=== PATIENT | female | born 1960 | race Caucasian/White ===

== ENCOUNTER → 2018-02-15 14:04 | Outpatient (CLI) | payer MEDICARE, OTHER, SELFPAY ==
--- NOTE | 2018-02-15 | DI.MRI.S_ITS ---
PROCEDURE: MR KNEE RT WO CON INDICATIONS: STRESS FRACTURE - RIGHT TECHNIQUE: Noncontrast sagittal PD fast spin echo and T2 fast spin echo with fat saturation, sagittal 3-D FLASH with fat saturation; coronal T1 spin echo and PD fast spin echo with fat saturation, and axial PD fast spin echo with fat saturation through the knee. COMPARISON: [facility], MR, KNEE WITHOUT CONTRAST, 11/30/2017, 16:49. FINDINGS: Image quality: Excellent. Menisci: The medial meniscus is intact. There is a discoid lateral meniscus without evidence of tear. Cruciate ligaments: The anterior and posterior cruciate ligaments appear intact. Medial structures: The medial collateral ligament appears intact. The posterior oblique ligament, semimembranosus tendon insertions, oblique popliteal ligament, and meniscocapsular junction appear intact. Visualized portions of the pes anserinus tendons appear normal. No abnormal bursal fluid. Lateral structures: The lateral collateral ligament, long and short heads of the biceps femoris tendon appear intact. The popliteus tendon appears normal; the popliteofibular ligament appears intact. The posterosuperior and anteroinferior popliteomeniscal fascicles appear intact. The arcuate and fabellofibular ligaments appear intact, on either side of the lateral inferior geniculate artery. Iliotibial band appears normal. Anterior structures: The quadriceps and patellar tendons appear intact. Patellar alignment is normal. No femoral trochlear dysplasia or ventral trochlear prominence. No edema in the infrapatellar fat pad. Bones and cartilage: No displaced fracture. Previously seen contusion within the distal central and lateral femoral condyle has decreased moderately, consistent with resolving contusion. Mild diffuse articular cartilage loss is present in all 3 compartments. Joint space: There is physiologic knee joint fluid. No change in 7 mm diameter intra-articular loose body within the anterior compartment. Trace Ramos's cyst. Normal appearing synovial plicae are incidentally noted. IMPRESSION: 1 tear resolving contusion within the distal femur. 2. No change in mild tricompartmental articular cartilage loss. 3. Discoid lateral meniscus without superimposed tear. 4. No change in intra-articular loose body. Dictated by: Fay Grady M.D. on 02/15/2018 at 16:23 Approved by: Fay Grady M.D. on 02/15/2018 at 16:28
--- NOTE | 2018-02-15 | DI.MRI.S_ITS ---
PROCEDURE: MR FOOT RT WO CON INDICATIONS: STRESS FRACTURE - RIGHT TECHNIQUE: Noncontrast sagittal T1 spin echo and T2 fast spin echo with fat saturation, long-axis T1 spin echo and T2 fast spin echo with fat saturation, short-axis T1 spin echo and T2 fast spin echo with fat saturation through the forefoot. COMPARISON: [facility], MR, MR FOOT LT WO CON, 02/15/2018, 14:47. [facility], MR, FOOT WITHOUT CONTRAST, 11/30/2017, 17:47. [facility], MR, FOOT WITHOUT CONTRAST, 11/30/2017, 17:22. [facility], MR, MR FOOT RIGHT WITHOUT CONTRAST, 07/05/2017, 15:05. FINDINGS: Image quality: Diagnostic. Bones and joints: Moderate diffuse marrow edema is identified involving the medial cuneiform. There is mild marrow edema involving the adjacent plantar base of the 1st metatarsal. There is mild marrow edema noted involving the proximal navicular. No additional areas of significant marrow edema are evident. There are no suspicious osseous lesions. No displaced fractures or dislocations are identified. There are mild degenerative changes present involving the metatarsophalangeal joints, most pronounced at the great toe. There is a bony protuberance evident involving the medial cuneiform that extends into the region of the Lisfranc interval, which may potentially be related to prior Lisfranc ligament injury. Soft tissues: The soft tissues of the right forefoot are within normal limits. There is no mass or loculated fluid collection. There is a dorsal subcutaneous edema are present. No ganglion cysts or bursal fluid collections are appreciated. The flexor and extensor tendons of the foot are essentially within normal limits. However, there may be mild tendinopathy involving the mid to distal aspect of the peroneus longus tendon. There is no significant atrophy involving the intrinsic muscles of the forefoot. The Lisfranc ligament is not well seen. IMPRESSION: 1. Unchanged marrow edema involving the medial cuneiform. This may represent a stress fracture or degenerative change. No new fractures are evident. 2. Marrow edema is also present involving the base of the 1st metatarsal and the navicular, also likely degenerative. 3. Mild degenerative changes of the metatarsophalangeal joints. 4. Mild mid to distal peroneus longus tendinopathy. Dictated by: Gordo Colorado M.D. on 02/15/2018 at 15:11 Approved by: Gordo Colorado M.D. on 02/15/2018 at 15:18
--- NOTE | 2018-02-15 | DI.MRI.S_ITS ---
PROCEDURE: MRFOOT LT WO CON INDICATIONS: STRESS FRACTURE - LEFT TECHNIQUE: Noncontrast sagittal T1 spin echo and T2 fast spin echo with fat saturation, long-axis T1 spin echo and T2 fast spin echo with fat saturation, short-axis T1 spin echo and T2 fast spin echo with fat saturation through the forefoot. COMPARISON: [facility], MR, FOOT WITHOUT CONTRAST, 11/30/2017, 17:47. [facility], MR, FOOT WITHOUT CONTRAST, 11/30/2017, 17:22. [facility], CR, XR FOOT 3+ VIEWS BILATERAL, 09/09/2017, 16:13. [facility], MR, MR FOOT LEFT WITHOUT CONTRAST, 07/05/2017, 14:29. FINDINGS: Image quality: Diagnostic. Bones and joints: There continues to be diffuse marrow edema present involving the medial cuneiform with an associated linear area of decreased T1 signal intensity, suggesting a stress fracture. This appearance is similar to the previous exams and has not significantly progressed. There is marrow edema noted involving the 5th metacarpal with linear areas decreased T1 signal at the neck of the 5th metacarpal. There is mild narrowing edema also present involving the head of the 4th metacarpal. Marrow edema is present involving the proximal phalanx of the 3rd digit. No suspicious osseous lesions or displaced fractures are evident. Bony alignment is within normal limits. Soft tissues: There is no soft tissue mass or fluid collection evident involving the left foot. No ganglion cysts are evident. The flexor and extensor tendons of the forefoot are intact. There is tendinopathy noted involving the peroneus longus. No significant muscle atrophy is evident involving the intrinsic muscles of the forefoot. Lisfranc ligament appears to be intact. There is a subcutaneous edema on the dorsal aspect of the forefoot is present. IMPRESSION: 1. Unchanged stress fractures versus degenerative marrow edema involving the medial cuneiform, 5th metatarsal, 4th metatarsal head, and proximal phalanx of the 3rd digit. No new bony abnormalities are identified. 2. Mild peroneus longus tendinopathy. Dictated by: Gordo Colorado M.D. on 02/15/2018 at 15:24 Approved by: Gordo Colorado M.D. on 02/15/2018 at 15:29
== END ==
PROVIDERS: PCP Orthopaedic Surgery Foot and Ankle Surgery; Visit Provider Orthopaedic Surgery Foot and Ankle Surgery
DX: M84.374A Stress fracture, right foot, initial encounter for fracture (principal); S83.91XA Sprain of unspecified site of right knee, initial encounter
CPT/HCPCS: 73718; 73721

== ENCOUNTER 2018-03-22 02:43 | Emergency (ER) | payer MEDICARE, OTHER, SELFPAY ==
[2018-03-22] VITALS (7 sets, daily range): BP systolic 93–151; BP diastolic 68–99; PULSE 71–96; RESP 12–18; TEMP 35.9; O2SAT 96–100
--- NOTE | 2018-03-22 03:26 | DI.RAD.S_ITS ---
PROCEDURE: XR HIP W PEL IF DONE RT 2V INDICATIONS: pain in right hip TECHNIQUE: AP pelvis with lateral view(s) of the right hip(s). COMPARISON: None. FINDINGS: Bones: Osteopenia. No fractures or dislocations. Pelvic ring appears intact. Marked pelvic tilt downward on the left may be positional. No suspicious bony lesions. Soft tissues: The visualized bowel gas pattern shows considerable stool within the colon. No suspicious soft tissue calcifications. IMPRESSION: 1. No fracture or dislocation. 2. Possible constipation Dictated by: Carlos Rojas M.D. on 03/22/2018 at 8:05 Approved by: Carlos Rojas M.D. on 03/22/2018 at 8:12
--- NOTE | 2018-03-22 03:26 | DI.RAD.S_ITS ---
PROCEDURE: XR KNEE RT 3V INDICATIONS: pain TECHNIQUE: 3 views of the knee were acquired. COMPARISON: [facility], MR, MR KNEE RT WO CON, 02/15/2018, 15:40. [facility], RG, KNEE 3VW (RT), 08/25/2017, 5:23. [facility], RG, KNEE 3VW (RT), 03/30/2017, 16:07. FINDINGS: Bones: Generalized osteopenia. No fractures or dislocations. No suspicious bony lesions. Mild tricompartmental joint space narrowing Soft tissues: No joint effusion. No suspicious soft tissue calcifications. IMPRESSION: 1. No joint effusion or acute bony abnormality. Dictated by: Carlos Rojas M.D. on 03/22/2018 at 8:00 Approved by: Carlos Rojas M.D. on 03/22/2018 at 8:05
[2018-03-22] MEDS: LORazepam 2 MG/ML SYRINGE 0.5 MG IV (04:22)
[2018-03-22] MEDS: HALOPERIDOL 5 MG/ML VIAL 1.5 MG IV (04:24)
[2018-03-22] MEDS: MORPHINE 5 MG/ML INJ 4 MG IV (04:26)
--- NOTE | 2018-03-22 04:39 | ED_ITS ---
HPI - Extremity Injury (Lower) General Chief Complaint: Extremity Injury, Lower Stated Complaint: Rt leg pain History of Present Illness HPI Narrative: HPI 57-year-old female with cerebral palsy, [place]'s disease, osteoporosis, and recurrent atraumatic insufficiency fractures presents for evaluation of right hip and knee pain after bumping her right hip in the approximately 3 days prior to presentation while transitioning from a wheelchair to a car. Patient notes mild to moderate waxing waning pain that worsen this evening leading to her presentation. No clear interval trauma. Patient as fevers, chills, or further symptoms. M/S/F/SocHx notable for: please see HPI; remainder reviewed with patient and in chart. ROS: Negative constitutional, eye, cardiovascular, pulmonary, GI, , MSK, skin , neurologic, psychiatric, endocrine unless noted in the HPI. Exam Gen: Pleasant, non-toxic appearing, resting in mild discomfort. HEENT: NC, AT, PEERL, EOMI. Resp: Clear to auscultation bilaterally, normal work of breathing, no accessory muscle usage. Card: Regular rate and rhythm with no murmurs, rubs, or gallops, extremities warm and well perfused. GI: Non-tender to palpation throughout all quadrants, no focal tenderness at McBurney's point, negative Lennon's sign, non-distended, no rebound or guarding. : No suprapubic tenderness to palpation. MSK: global muscle atrophy. No tenderness palpation of the appendicular skeleton with exception of the right lower extremity with mild right hip tenderness and mild right knee tenderness but without palpable abnormalities. All extremities warm and well perfused with 2+ radial pulses in DP pulses bilaterally. Right lower extremity with full functional range of motion of the hip, knee, ankle. Sensation intact to touch in all toes. Muscle compartments of the right lower extremity (as well as the remainder of the appendicular skeleton ) are soft and nontender to palpation. Skin is without visible or palpable abnormalities. Skin: Normal color with no visible lesions. Neuro: AO x 3, no facial asymmetry, vision and hearing WNL. Psych: unusual mood and affect. Labs / Imaging: XR R hip & pelvis: no acute traumatic abnormalities. XR R knee: no acute traumatic abnormalities. MDM Previous chart, nursing note, labs, imaging, and vitals reviewed. A: 57-year-old female with cerebral palsy, [place]'s disease, osteoporosis, and recurrent atraumatic insufficiency fractures presents for evaluation of right hip and knee pain after bumping her right hip in the approximately 3 days prior to presentation while transitioning from a wheelchair to a car. Patient notes mild to moderate waxing waning pain that worsen this evening leading to her presentation. DDx & Evaluation: imaging without evidence of radiographically apparent fracture. Insufficiency fracture cannot be fully excluded, but as the patient has only been appropriate for conservative management previously, and there are no clear signs of fracture, she is appropriate for analgesia and outpatient care as needed. Physical exam is without evidence of CMS deficit, compartment syndrome, or infectious process. Patient given analgesia as per DEC. Discharged with limited RX for [place] instructions to follow up with PCP. Impression: right leg pain. (please reference below for remainder of encounter information) Related Data Home Medications Medication Instructions Recorded Confirmed acyclovir #0 08/25/17 divalproex [Depakote ER] #0 08/25/17 esterified estrogens [Menest] #0 08/25/17 fludrocortisone #0 08/25/17 hydrocortisone [Cortef] #0 08/25/17 liothyronine [Cytomel] #0 08/25/17 lorazepam #0 08/25/17 oxycodone [OxyContin] #0 08/25/17 Allergies Allergy/AdvReac Type Severity Reaction Status Date / Time hydromorphone [From DILAUDID] Allergy Unknown Unverified 01/11/18 11:47 lamotrigine [From LAMICTAL] Allergy Unknown Unverified 01/11/18 11:47 levetiracetam [From KEPPRA] Allergy Unknown Unverified 01/11/18 11:47 promethazine [From PHENERGAN] Allergy Unknown Unverified 01/11/18 11:47 Exam Initial Vital Signs Initial Vital Signs: Vital Signs Temperature 96.7 F L 03/22/18 03:15 Pulse Rate 73 03/22/18 03:15 Respiratory Rate 12 03/22/18 03:15 Blood Pressure 115/90 H 03/22/18 03:15 Pulse Oximetry 99 03/22/18 03:15 Course Orders Ordered: ED Orders 03/22/18 03:26 XR hip w pel if done RT 2V Stat XR knee RT 3V Stat Discontinued Medications Haloperidol (Haldol) 1.5 mg IV NOW ONE Stop: 03/22/18 04:13 Last Admin: 03/22/18 04:24 Dose: 1.5 mg Lorazepam (Ativan) 0.5 mg IV NOW ONE Stop: 03/22/18 04:13 Last Admin: 03/22/18 04:22 Dose: 0.5 mg Morphine Sulfate (Morphine Sulfate) 4 mg IV NOW ONE Stop: 03/22/18 04:13 Last Admin: 03/22/18 04:26 Dose: 4 mg Vital Signs - 8 hr 03/22/18 03:15 Temperature 96.7 F L Pulse Rate 73 Respiratory Rate 12 Blood Pressure 115/90 H Pulse Oximetry 99 Discharge Plan Departure Prescriptions: No Action liothyronine [Cytomel] 5 MCG tablet Qty: 0 RF: 0 divalproex [Depakote ER] 250 MG tablet extended release 24 hr Qty: 0 RF: 0 hydrocortisone [Cortef] 20 MG tablet Qty: 0 RF: 0 lorazepam 1 MG tablet Qty: 0 RF: 0 fludrocortisone 0.1 MG tablet Qty: 0 RF: 0 acyclovir 400 MG tablet Qty: 0 RF: 0 oxycodone [OxyContin] 40 MG tablet,oral only,ext.rel.12 hr Qty: 0 RF: 0 esterified estrogens [Menest] 1.25 MG tablet Qty: 0 RF: 0
[2018-03-22] MEDS: FLUDROCORTISONE 0.1 MG TABLET 0.05 MG PO (08:39)
[2018-03-22] MEDS: KETOROLAC 60 MG/2 ML VIAL 15 MG IV (08:40)
[2018-03-22] MEDS: HYDROCORTISONE 10 MG TABLET 20 MG PO (08:40)
--- NOTE | 2018-03-22 09:06 | PC.NURSE ---
PT states cannot go home as cannot take care of herself. States we are sending her home without proper care. MD at bedside to discuss with PT. Transport standing by
[2018-03-22] MEDS: MORPHINE 10 MG/ML INJ 4 MG IM (09:14)
--- NOTE | 2018-03-22 09:23 | PC.NURSE ---
Per . Pain meds and DC
== END 2018-03-22 09:25 | disposition home or self-care (01) ==
PROVIDERS: Emergency Provider Emergency Medicine; PCP Orthopaedic Surgery Foot and Ankle Surgery
DX: M79.604 Pain in right leg (principal)
CPT/HCPCS: 73502; 73562; 99283; 99291; J1630; J1885; J2060; J2270

== ENCOUNTER 2018-03-22 18:36 | Emergency (ER) | payer MEDICARE, OTHER, SELFPAY ==
--- NOTE | 2018-03-22 19:11 | ED.WEAKNESS ---
HPI - Weakness <Maryann AlexanderDOMINGOP-BC - Last Filed: 03/22/18 23:00> General Chief complaint: Weakness Stated complaint: Leg Pain Time Seen by Provider: 03/22/18 18:57 Source: patient Mode of arrival: EMS Limitations: no limitations History of Present Illness HPI Narrative: Patient presented by EMS from home. She was seen earlier today for joint pain. She stated she was offered admission at that time, but she wanted to go home. She states she has failed home. She is complaining of pain that is worsening, decreased mobility, and inability to care for self. She is noted to have a medical history including seizures, cerebral palsy, severe osteoporosis and [place] disease. She states that her pain is mostly in her knees and her feet. She states that she has microscopic fractures that she is unable to have found by x-ray. She is requesting admission for inability to care for self and was to fall. At this point she denies fevers, urinary complaints, chest pain, shortness of breath, cough. She states she is in a wheelchair at home, is unable to walk to to foot fractures, and has a caregiver come 3 days a week. However she is now too weak to transfer from her wheelchair to her bed. Related Data Home Medications Medication Instructions Recorded Confirmed acyclovir #0 08/25/17 divalproex [Depakote ER] #0 08/25/17 esterified estrogens [Menest] #0 08/25/17 fludrocortisone #0 08/25/17 hydrocortisone [Cortef] #0 08/25/17 liothyronine [Cytomel] #0 08/25/17 lorazepam #0 08/25/17 oxycodone [OxyContin] #0 08/25/17 Previous Rx's Medication Instructions Recorded hydrocodone-acetaminophen [[place]] 1 tab PO Q6H PRN #6 tab 03/22/18 oxycodone-acetaminophen [Percocet] 1 tab PO Q4-6H PRN #7 tab 03/22/18 Allergies Allergy/AdvReac Type Severity Reaction Status Date / Time hydromorphone [From DILAUDID] Allergy Unknown Verified 03/22/18 22:43 lamotrigine [From LAMICTAL] Allergy Unknown Verified 03/22/18 22:43 levetiracetam [From KEPPRA] Allergy Unknown Verified 03/22/18 22:43 promethazine [From PHENERGAN] Allergy Unknown Verified 03/22/18 22:43 Review of Systems <Maryann GEORGETTE Alexander- - Last Filed: 03/22/18 23:00> Review of Systems GENERAL: See HPI HEENT: Denies sinus pain, ear pain, sore throat, difficulty swallowing, dizziness. RESPIRATORY: Denies dyspnea, cough, wheezing, hemoptysis, sputum. CARDIOVASCULAR: Denies chest pain, palpitations, orthopnea, edema, GASTROINTESTINAL: Denies nausea, vomiting, abdominal pain, diarrhea, constipation, melena. : Denies dysuria, frequency, incontinence, hematuria, urinary retention. MUSCULOSKELETAL: See HPI SKIN: Denies rash, skin lesions, or other NEUROLOGIC: Denies weakness, headache, numbness, change in speech, confusion, seizures, incoordination. PSYCHIATRIC: No concerning psychosocial issues. 12 point review of systems is negative except for those stated above Exam <GEORGETTE Keane- - Last Filed: 03/22/18 23:00> Narrative Exam Narrative: GENERAL: Chronically ill-appearing female lying in bed. HEAD: Atraumatic. Normocephalic. No temporal or scalp tenderness. EYES: Pupils equal round and reactive. Extraocular motions intact. No scleral icterus. No injection or drainage. ENT: Nose without bleeding, purulent drainage or septal hematoma. Throat without erythema, tonsillar hypertrophy or exudate. Uvula midline. Airway patent. NECK: Trachea midline. No JVD or lymphadenopathy. Supple, nontender, no meningeal signs. CARDIOVASCULAR: Regular rate and rhythm without murmurs, gallops, or rubs. RESPIRATORY: Clear to auscultation. Breath sounds equal bilaterally. No wheezes, rales, or rhonchi. GASTROINTESTINAL: Abdomen soft, flat, non-tender, nondistended. No hepato-splenomegaly, or palpable masses. No guarding. EXTREMITIES: Noted to have brace on bilateral lower extremities, including right knee and left foot. Pain to palpation of lower extremities and hips. BACK: Nontender without deformity or crepitance. No flank tenderness. NEURO: AOx3. SKIN: No rash or erythema. Initial Vital Signs Initial Vital Signs: Vital Signs Pulse Rate 102 H 03/22/18 20:06 Respiratory Rate 18 03/22/18 20:06 Blood Pressure 103/67 03/22/18 20:06 Pulse Oximetry 100 03/22/18 20:06 <Rika Payan DO - Last Filed: 03/23/18 00:47> Initial Vital Signs Initial Vital Signs: Vital Signs Pulse Rate 102 H 03/22/18 20:06 Respiratory Rate 18 03/22/18 20:06 Blood Pressure 103/67 03/22/18 20:06 Pulse Oximetry 100 03/22/18 20:06 Course <Maryann AlexanderGEORGETTE-BC - Last Filed: 03/22/18 23:00> Hospital Course: Patient presented for 2nd emergency department visit the past 18 hr. She is requesting admission as she cannot care for herself at home. An IV was inserted, basic labs were drawn, an EKG was done in urine samples obtained. Lab work came back normal. However the patient is significantly weak, is at risk of fall, is having pain control problems and is no longer safe to be at home by herself. I contacted Dr. Marcano to request admission for pain control and discharge planning. However Dr. Shawnee Marcano did not think that the patient met admission criteria. Given her weakness and risk to fall, I did not feel safe to transfer her home as she is unable to transfer herself from her wheelchair to her bed. She was medicated with oxycodone in the emergency department. I contacted Dr. Marcano at [facility] who kindly agree to admit the patient. Orders Ordered: ED Orders 03/22/18 19:24 EKG-12 Lead Stat 03/22/18 20:30 Complete Blood Count AUTO DIFF Stat Comprehensive Metabolic Panel Stat Troponin with CK Cardiac Panel Stat Discontinued Medications Sodium Chloride (Normal Saline 0.9%) 1,000 mls @ 150 mls/hr IV CONT SORAIDA Last Admin: 03/22/18 21:04 Dose: 150 mls/hr Oxycodone HCl ([place]) 5 mg PO NOW ONE Stop: 03/22/18 21:51 Last Admin: 03/22/18 22:42 Dose: 5 mg Vital Signs - 8 hr 03/22/18 20:06 03/22/18 21:05 03/22/18 21:45 Pulse Rate 102 H 88 93 H Respiratory Rate 18 19 Blood Pressure [Right Arm] 103/67 120/80 136/85 H Pulse Oximetry 100 100 98 03/22/18 22:30 Pulse Rate 94 H Respiratory Rate 15 Blood Pressure [Right Arm] 108/80 Pulse Oximetry 98 <Rika Payan DO - Last Filed: 03/23/18 00:47> Orders Ordered: ED Orders 03/22/18 19:24 EKG-12 Lead Stat 03/22/18 20:30 Complete Blood Count AUTO DIFF Stat Comprehensive Metabolic Panel Stat Troponin with CK Cardiac Panel Stat Discontinued Medications Sodium Chloride (Normal Saline 0.9%) 1,000 mls @ 150 mls/hr IV CONT SORAIDA Last Admin: 03/22/18 21:04 Dose: 150 mls/hr Oxycodone HCl (Per[place]one) 5 mg PO NOW ONE Stop: 03/22/18 21:51 Last Admin: 03/22/18 22:42 Dose: 5 mg Vital Signs - 8 hr 03/22/18 20:06 03/22/18 21:05 03/22/18 21:45 Pulse Rate 102 H 88 93 H Respiratory Rate 18 18 19 Blood Pressure [Right Arm] 103/67 120/80 136/85 H Pulse Oximetry 100 100 98 03/22/18 22:30 Pulse Rate 94 H Respiratory Rate 15 Blood Pressure [Right Arm] 108/80 Pulse Oximetry 98 MDM - Weakness <MAGDIEL Keane - Last Filed: 03/22/18 23:00> Lab Data Result diagrams: 03/22/18 20:30 03/22/18 20:30 Lab Results 03/22/18 03/22/18 Range/Units 20:30 20:30 WBC 6.4 (4.5-11.0) X10^3/uL RBC 4.27 (4.0-5.2) X10^6/uL Hgb 13.9 (12.0-16.0) g/dL Hct 40.9 (36-46) % MCV 95.8 (80-100) fL MCH 32.6 (26-34) PG MCHC 34.1 (30-36) % RDW 13.7 (11.6-14.8) % Plt Count 125 L (150-400) X10^3/uL Neut % (Auto) 71.5 (50-75) % Lymph % (Auto) 15.5 L (25-40) % [place] % (Auto) 12.4 (3-14) % Eos % (Auto) 0.1 L (2-4) % Baso % (Auto) 0.5 (0-2) % Neut # (Auto) 4600 (4144-0978) /uL Sodium 141 (137-145) mmol/L Potassium 3.8 (3.4-5.1) mmol/L Chloride 99 (98-107) mmol/L Carbon Dioxide 30 (22-32) mmol/L BUN 14 (7-17) mg/dL Creatinine 0.40 L (0.52-1.04) mg/dL Estimated GFR > 60.0 (>60) mL/min BUN/Creatinine Ratio 35.0 H (6-22) Glucose 87 (70-100) mg/dL Calcium 9.1 (8.4-10.2) mg/dL Total Bilirubin 0.9 (0.2-1.3) mg/dL AST 23 (14-36) IU/L ALT 14 (9-52) IU/L Alkaline Phosphatase 68 (38-126) U/L Total Creatine Kinase 88 (30-135) U/L Troponin I < 0.012 (0.01-0.034) ng/mL Total Protein 7.3 (6.3-8.2) g/dL Albumin 4.1 (3.5-5.0) g/dL Globulin 3.2 (1.7-4.1) g/dL Albumin/Globulin Ratio 1.3 (1.0-2.8) ECG Data Attestation: I personally reviewed and interpreted this ECG as follows: Interpretation: Sinus rhythm. No ectopy. Ventricular rate 87. No ST elevation or depression. [facility] Narrative Medical decision making narrative: Patient presented requesting admission for pain control and inability to care for self. Chart review illustrated stress fractures in her feet. I did a CBC, CMP, troponin and EKG all which came back negative. Her urinalysis came back negative. However given her severe pain, weakness, decreased mobility and risk to fall and not feel safe to discharge her home without further care. [facility] hospitalist Dr. Marcano did not feel that the patient met admission criteria. Dr. Mistry kindly admitted the patient to [facility] and the patient was transferred without incident. <Rika Payan, DO - Last Filed: 03/23/18 00:47> Lab Data Lab Results 03/22/18 03/22/18 Range/Units 20:30 20:30 WBC 6.4 (4.5-11.0) X10^3/uL RBC 4.27 (4.0-5.2) X10^6/uL Hgb 13.9 (12.0-16.0) g/dL Hct 40.9 (36-46) % MCV 95.8 (80-100) fL MCH 32.6 (26-34) PG MCHC 34.1 (30-36) % RDW 13.7 (11.6-14.8) % Plt Count 125 L (150-400) X10^3/uL Neut % (Auto) 71.5 (50-75) % Lymph % (Auto) 15.5 L (25-40) % [place] % (Auto) 12.4 (3-14) % Eos % (Auto) 0.1 L (2-4) % Baso % (Auto) 0.5 (0-2) % Neut # (Auto) 4600 (7716-2876) /uL Sodium 141 (137-145) mmol/L Potassium 3.8 (3.4-5.1) mmol/L Chloride 99 (98-107) mmol/L Carbon Dioxide 30 (22-32) mmol/L BUN 14 (7-17) mg/dL Creatinine 0.40 L (0.52-1.04) mg/dL Estimated GFR > 60.0 (>60) mL/min BUN/Creatinine Ratio 35.0 H (6-22) Glucose 87 (70-100) mg/dL Calcium 9.1 (8.4-10.2) mg/dL Total Bilirubin 0.9 (0.2-1.3) mg/dL AST 23 (14-36) IU/L ALT 14 (9-52) IU/L Alkaline Phosphatase 68 (38-126) U/L Total Creatine Kinase 88 (30-135) U/L Troponin I < 0.012 (0.01-0.034) ng/mL Total Protein 7.3 (6.3-8.2) g/dL Albumin 4.1 (3.5-5.0) g/dL Globulin 3.2 (1.7-4.1) g/dL Albumin/Globulin Ratio 1.3 (1.0-2.8) Discharge Plan Departure Patient Disposition: [facility] Clinical Impression: Weakness, Adult failure to thrive, Pain Discharge Date/Time: 03/22/18 23:33 Interventions: ED Discharge Assessment Last Done: 03/22/18 23:30 Prescriptions: No Action liothyronine [Cytomel] 5 MCG tablet Qty: 0 RF: 0 divalproex [Depakote ER] 250 MG tablet extended release 24 hr Qty: 0 RF: 0 hydrocortisone [Cortef] 20 MG tablet Qty: 0 RF: 0 lorazepam 1 MG tablet Qty: 0 RF: 0 fludrocortisone 0.1 MG tablet Qty: 0 RF: 0 acyclovir 400 MG tablet Qty: 0 RF: 0 oxycodone [OxyContin] 40 MG tablet,oral only,ext.rel.12 hr Qty: 0 RF: 0 esterified estrogens [Menest] 1.25 MG tablet Qty: 0 RF: 0 hydrocodone-acetaminophen [[place]] 5-325 mg tablet 1 tab PO Q6H PRN (Reason: pain) Qty: 6 RF: 0 oxycodone-acetaminophen [Percocet] 5-325 mg tablet 1 tab PO Q4-6H PRN (Reason: pain) Qty: 7 RF: 0 <Rika Payan DO - Last Filed: 03/23/18 00:47> [facility] ED Attending [place] Attestation: I was immediately available in the department for consultation. Documentation has been reviewed. I agree with assessment and plan.
[2018-03-22 20:06] VITALS: BP 103/67; PULSE 102; RESP 18; O2SAT 100
[2018-03-22 20:38] LABS: Add Manual Diff / Slide Review NO; Basophils Percent Auto 0.5 % (0-2); Eosinophils Percent Auto 0.1 % (2-4); Hematocrit 40.9 % (36-46); Hemoglobin 13.9 g/dL (12.0-16.0); Lymphocytes Percent Auto 15.5 % (25-40); Mean Corpuscular HGB Conc 34.1 % (30-36); Mean Corpuscular Hemoglobin 32.6 PG (26-34); Mean Corpuscular Volume 95.8 fL (80-100); Monocytes Percent Auto 12.4 % (3-14); Neutrophils Absolute Auto 4600 /uL (3000-5900); Neutrophils Percent Auto 71.5 % (50-75); Platelet Count 125 X10^3/uL (150-400); Red Blood Cell Count 4.27 X10^6/uL (4.0-5.2); Red Cell Distribution Width 13.7 % (11.6-14.8); White Blood Cell Count 6.4 X10^3/uL (4.5-11.0)
[2018-03-22 20:49] LABS: Alanine Aminotransferase 14 IU/L (9-52); Albumin 4.1 g/dL (3.5-5.0); Albumin Globulin Ratio 1.3 (1.0-2.8); Alkaline Phosphatase 68 U/L (38-126); Aspartate Aminotransferase 23 IU/L (14-36); Bilirubin Total 0.9 mg/dL (0.2-1.3); Blood Urea Nitrogen 14 mg/dL (7-17); Calcium 9.1 mg/dL (8.4-10.2); Carbon Dioxide 30 mmol/L (22-32); Chloride 99 mmol/L (98-107); Creatine Kinase 88 U/L (30-135); Estimated Glomerular Filt Rate > 60.0 mL/min (>60); Globulin 3.2 g/dL (1.7-4.1); Glucose 87 mg/dL (70-100); Potassium 3.8 mmol/L (3.4-5.1); Sodium 141 mmol/L (137-145); Total Protein 7.3 g/dL (6.3-8.2)
[2018-03-22 20:50] LABS: HEMOLYSIS 56 (0-50)
[2018-03-22 21:02] LABS: Troponin I < 0.012 ng/mL (0.01-0.034)
[2018-03-22] MEDS: SODIUM CHLORIDE 0.9% 1,000 ML 150 ML IV (21:04)
[2018-03-22 21:05] VITALS: BP 120/80; PULSE 88; RESP 18; O2SAT 100
[2018-03-22 21:45] VITALS: BP 136/85; PULSE 93; RESP 19; O2SAT 98
[2018-03-22 22:30] VITALS: BP 108/80; PULSE 94; RESP 15; O2SAT 98
[2018-03-22] MEDS: OXYCODONE IR 5 MG TABLET PO (22:42)
--- NOTE | 2018-03-22 23:00 | ED_ITS ---
HPI - Weakness <Maryann AlexanderDOMINGOP-BC - Last Filed: 03/22/18 23:00> General Chief complaint: Weakness Stated complaint: Leg Pain Time Seen by Provider: 03/22/18 18:57 Source: patient Mode of arrival: EMS Limitations: no limitations History of Present Illness HPI Narrative: Patient presented by EMS from home. She was seen earlier today for joint pain. She stated she was offered admission at that time, but she wanted to go home. She states she has failed home. She is complaining of pain that is worsening, decreased mobility, and inability to care for self. She is noted to have a medical history including seizures, cerebral palsy, severe osteoporosis and [place]'s disease. She states that her pain is mostly in her knees and her feet. She states that she has microscopic fractures that she is unable to have found by x-ray. She is requesting admission for inability to care for self and was to fall. At this point she denies fevers, urinary complaints, chest pain, shortness of breath, cough. She states she is in a wheelchair at home, is unable to walk to to foot fractures, and has a caregiver come 3 days a week. However she is now too weak to transfer from her wheelchair to her bed. Related Data Home Medications Medication Instructions Recorded Confirmed acyclovir #0 08/25/17 divalproex [Depakote ER] #0 08/25/17 esterified estrogens [Menest] #0 08/25/17 fludrocortisone #0 08/25/17 hydrocortisone [Cortef] #0 08/25/17 liothyronine [Cytomel] #0 08/25/17 lorazepam #0 08/25/17 oxycodone [OxyContin] #0 08/25/17 Previous Rx's Medication Instructions Recorded hydrocodone-acetaminophen [[place]] 1 tab PO Q6H PRN #6 tab 03/22/18 oxycodone-acetaminophen [Percocet] 1 tab PO Q4-6H PRN #7 tab 03/22/18 Allergies Allergy/AdvReac Type Severity Reaction Status Date / Time hydromorphone [From DILAUDID] Allergy Unknown Verified 03/22/18 22:43 lamotrigine [From LAMICTAL] Allergy Unknown Verified 03/22/18 22:43 levetiracetam [From KEPPRA] Allergy Unknown Verified 03/22/18 22:43 promethazine [From PHENERGAN] Allergy Unknown Verified 03/22/18 22:43 Review of Systems <Maryann GEORGETTE Alexander- - Last Filed: 03/22/18 23:00> Review of Systems GENERAL: See HPI HEENT: Denies sinus pain, ear pain, sore throat, difficulty swallowing, dizziness. RESPIRATORY: Denies dyspnea, cough, wheezing, hemoptysis, sputum. CARDIOVASCULAR: Denies chest pain, palpitations, orthopnea, edema, GASTROINTESTINAL: Denies nausea, vomiting, abdominal pain, diarrhea, constipation, melena. : Denies dysuria, frequency, incontinence, hematuria, urinary retention. MUSCULOSKELETAL: See HPI SKIN: Denies rash, skin lesions, or other NEUROLOGIC: Denies weakness, headache, numbness, change in speech, confusion, seizures, incoordination. PSYCHIATRIC: No concerning psychosocial issues. 12 point review of systems is negative except for those stated above Exam <GEORGETTE Keane- - Last Filed: 03/22/18 23:00> Narrative Exam Narrative: GENERAL: Chronically ill-appearing female lying in bed. HEAD: Atraumatic. Normocephalic. No temporal or scalp tenderness. EYES: Pupils equal round and reactive. Extraocular motions intact. No scleral icterus. No injection or drainage. ENT: Nose without bleeding, purulent drainage or septal hematoma. Throat without erythema, tonsillar hypertrophy or exudate. Uvula midline. Airway patent. NECK: Trachea midline. No JVD or lymphadenopathy. Supple, nontender, no meningeal signs. CARDIOVASCULAR: Regular rate and rhythm without murmurs, gallops, or rubs. RESPIRATORY: Clear to auscultation. Breath sounds equal bilaterally. No wheezes , rales, or rhonchi. GASTROINTESTINAL: Abdomen soft, flat, non-tender, nondistended. No hepato- splenomegaly, or palpable masses. No guarding. EXTREMITIES: Noted to have brace on bilateral lower extremities, including right knee and left foot. Pain to palpation of lower extremities and hips. BACK: Nontender without deformity or crepitance. No flank tenderness. NEURO: AOx3. SKIN: No rash or erythema. Initial Vital Signs Initial Vital Signs: Vital Signs Pulse Rate 102 H 03/22/18 20:06 Respiratory Rate 18 03/22/18 20:06 Blood Pressure 103/67 03/22/18 20:06 Pulse Oximetry 100 03/22/18 20:06 <Rika Payan DO - Last Filed: 03/23/18 00:47> Initial Vital Signs Initial Vital Signs: Vital Signs Pulse Rate 102 H 03/22/18 20:06 Respiratory Rate 18 03/22/18 20:06 Blood Pressure 103/67 03/22/18 20:06 Pulse Oximetry 100 03/22/18 20:06 Course <Maryann AlexanderGEORGETTE-BC - Last Filed: 03/22/18 23:00> Hospital Course: Patient presented for 2nd emergency department visit the past 18 hr. She is requesting admission as she cannot care for herself at home. An IV was inserted , basic labs were drawn, an EKG was done in urine samples obtained. Lab work came back normal. However the patient is significantly weak, is at risk of fall , is having pain control problems and is no longer safe to be at home by herself. I contacted Dr. Marcano to request admission for pain control and discharge planning. However Dr. Shawnee Marcano did not think that the patient met admission criteria. Given her weakness and risk to fall, I did not feel safe to transfer her home as she is unable to transfer herself from her wheelchair to her bed. She was medicated with oxycodone in the emergency department. I contacted Dr. Marcano at [facility] who kindly agree to admit the patient. Orders Ordered: ED Orders 03/22/18 19:24 EKG-12 Lead Stat 03/22/18 20:30 Complete Blood Count AUTO DIFF Stat Comprehensive Metabolic Panel Stat Troponin with CK Cardiac Panel Stat Discontinued Medications Sodium Chloride (Normal Saline 0.9%) 1,000 mls @ 150 mls/hr IV CONT SORAIDA Last Admin: 03/22/18 21:04 Dose: 150 mls/hr Oxycodone HCl (Percolone) 5 mg PO NOW ONE Stop: 03/22/18 21:51 Last Admin: 03/22/18 22:42 Dose: 5 mg Vital Signs - 8 hr 03/22/18 20:06 03/22/18 21:05 03/22/18 21:45 Pulse Rate 102 H 88 93 H Respiratory Rate 18 19 Blood Pressure [Right Arm] 103/67 120/80 136/85 H Pulse Oximetry 100 100 98 03/22/18 22:30 Pulse Rate 94 H Respiratory Rate 15 Blood Pressure [Right Arm] 108/80 Pulse Oximetry 98 <Rika Payan DO - Last Filed: 03/23/18 00:47> Orders Ordered: ED Orders 03/22/18 19:24 EKG-12 Lead Stat 03/22/18 20:30 Complete Blood Count AUTO DIFF Stat Comprehensive Metabolic Panel Stat Troponin with CK Cardiac Panel Stat Discontinued Medications Sodium Chloride (Normal Saline 0.9%) 1,000 mls @ 150 mls/hr IV CONT SORAIDA Last Admin: 03/22/18 21:04 Dose: 150 mls/hr Oxycodone HCl ([place]colone) 5 mg PO NOW ONE Stop: 03/22/18 21:51 Last Admin: 03/22/18 22:42 Dose: 5 mg Vital Signs - 8 hr 03/22/18 20:06 03/22/18 21:05 03/22/18 21:45 Pulse Rate 102 H 88 93 H Respiratory Rate 18 18 19 Blood Pressure [Right Arm] 103/67 120/80 136/85 H Pulse Oximetry 100 100 98 03/22/18 22:30 Pulse Rate 94 H Respiratory Rate 15 Blood Pressure [Right Arm] 108/80 Pulse Oximetry 98 MDM - Weakness <MAGDIEL Keane - Last Filed: 03/22/18 23:00> Lab Data Result diagrams: 03/22/18 20:30 03/22/18 20:30 Lab Results 03/22/18 03/22/18 Range/Units 20:30 20:30 WBC 6.4 (4.5-11.0) X10^3/uL RBC 4.27 (4.0-5.2) X10^6/uL Hgb 13.9 (12.0-16.0) g/dL Hct 40.9 (36-46) % MCV 95.8 (80-100) fL MCH 32.6 (26-34) PG MCHC 34.1 (30-36) % RDW 13.7 (11.6-14.8) % Plt Count 125 L (150-400) X10^3/uL Neut % (Auto) 71.5 (50-75) % Lymph % (Auto) 15.5 L (25-40) % [place] % (Auto) 12.4 (3-14) % Eos % (Auto) 0.1 L (2-4) % Baso % (Auto) 0.5 (0-2) % Neut # (Auto) 4600 (0660-8696) /uL Sodium 141 (137-145) mmol/L Potassium 3.8 (3.4-5.1) mmol/L Chloride 99 (98-107) mmol/L Carbon Dioxide 30 (22-32) mmol/L BUN 14 (7-17) mg/dL Creatinine 0.40 L (0.52-1.04) mg/dL Estimated GFR > 60.0 (>60) mL/min BUN/Creatinine Ratio 35.0 H (6-22) Glucose 87 (70-100) mg/dL Calcium 9.1 (8.4-10.2) mg/dL Total Bilirubin 0.9 (0.2-1.3) mg/dL AST 23 (14-36) IU/L ALT 14 (9-52) IU/L Alkaline Phosphatase 68 (38-126) U/L Total Creatine Kinase 88 (30-135) U/L Troponin I < 0.012 (0.01-0.034) ng/mL Total Protein 7.3 (6.3-8.2) g/dL Albumin 4.1 (3.5-5.0) g/dL Globulin 3.2 (1.7-4.1) g/dL Albumin/Globulin Ratio 1.3 (1.0-2.8) ECG Data Attestation: I personally reviewed and interpreted this ECG as follows: Interpretation: Sinus rhythm. No ectopy. Ventricular rate 87. No ST elevation or depression. [facility] Narrative Medical decision making narrative: Patient presented requesting admission for pain control and inability to care for self. Chart review illustrated stress fractures in her feet. I did a CBC, CMP, troponin and EKG all which came back negative. Her urinalysis came back negative. However given her severe pain, weakness, decreased mobility and risk to fall and not feel safe to discharge her home without further care. [facility] hospitalist Dr. Marcano did not feel that the patient met admission criteria. Dr. Mistry kindly admitted the patient to [facility] and the patient was transferred without incident. <Rika Payan, DO - Last Filed: 03/23/18 00:47> Lab Data Lab Results 03/22/18 03/22/18 Range/Units 20:30 20:30 WBC 6.4 (4.5-11.0) X10^3/uL RBC 4.27 (4.0-5.2) X10^6/uL Hgb 13.9 (12.0-16.0) g/dL Hct 40.9 (36-46) % MCV 95.8 (80-100) fL MCH 32.6 (26-34) PG MCHC 34.1 (30-36) % RDW 13.7 (11.6-14.8) % Plt Count 125 L (150-400) X10^3/uL Neut % (Auto) 71.5 (50-75) % Lymph % (Auto) 15.5 L (25-40) % [place] % (Auto) 12.4 (3-14) % Eos % (Auto) 0.1 L (2-4) % Baso % (Auto) 0.5 (0-2) % Neut # (Auto) 4600 (6144-5331) /uL Sodium 141 (137-145) mmol/L Potassium 3.8 (3.4-5.1) mmol/L Chloride 99 (98-107) mmol/L Carbon Dioxide 30 (22-32) mmol/L BUN 14 (7-17) mg/dL Creatinine 0.40 L (0.52-1.04) mg/dL Estimated GFR > 60.0 (>60) mL/min BUN/Creatinine Ratio 35.0 H (6-22) Glucose 87 (70-100) mg/dL Calcium 9.1 (8.4-10.2) mg/dL Total Bilirubin 0.9 (0.2-1.3) mg/dL AST 23 (14-36) IU/L ALT 14 (9-52) IU/L Alkaline Phosphatase 68 (38-126) U/L Total Creatine Kinase 88 (30-135) U/L Troponin I < 0.012 (0.01-0.034) ng/mL Total Protein 7.3 (6.3-8.2) g/dL Albumin 4.1 (3.5-5.0) g/dL Globulin 3.2 (1.7-4.1) g/dL Albumin/Globulin Ratio 1.3 (1.0-2.8) Discharge Plan Departure Patient Disposition: [facility] Clinical Impression: Weakness, Adult failure to thrive, Pain Discharge Date/Time: 03/22/18 23:33 Interventions: ED Discharge Assessment Last Done: 03/22/18 23:30 Prescriptions: No Action liothyronine [Cytomel] 5 MCG tablet Qty: 0 RF: 0 divalproex [Depakote ER] 250 MG tablet extended release 24 hr Qty: 0 RF: 0 hydrocortisone [Cortef] 20 MG tablet Qty: 0 RF: 0 lorazepam 1 MG tablet Qty: 0 RF: 0 fludrocortisone 0.1 MG tablet Qty: 0 RF: 0 acyclovir 400 MG tablet Qty: 0 RF: 0 oxycodone [OxyContin] 40 MG tablet,oral only,ext.rel.12 hr Qty: 0 RF: 0 esterified estrogens [Menest] 1.25 MG tablet Qty: 0 RF: 0 hydrocodone-acetaminophen [[place]] 5-325 mg tablet 1 tab PO Q6H PRN (Reason: pain) Qty: 6 RF: 0 oxycodone-acetaminophen [Percocet] 5-325 mg tablet 1 tab PO Q4-6H PRN (Reason: pain) Qty: 7 RF: 0 <Rika Payan DO - Last Filed: 03/23/18 00:47> [facility] ED Attending [place] Attestation: I was immediately available in the department for consultation. Documentation has been reviewed. I agree with assessment and plan.
--- NOTE | 2018-05-26 11:13 | PC.NURSE ---
Late Entry: Pt received NS on 03/22/18 starting at 1930. She received 600mls which was stopped at 2330.
== END 2018-03-22 23:33 | disposition short-term general hospital (02) ==
PROVIDERS: Emergency Provider Nurse Practitioner Family; PCP Orthopaedic Surgery Foot and Ankle Surgery
DX: R53.1 Weakness (principal); R62.7 Adult failure to thrive; R52 Pain, unspecified
CPT/HCPCS: 36591; 73502; 73562; 80053; 81003; 82550; 82553; 84484; 85025; 93005; 93010; 96360; 96361; 99283; 99285; 99291; J1630; J1885; J2060; J2270

== ENCOUNTER → 2018-06-29 11:44 | Outpatient (CLI) | payer MEDICARE, OTHER, SELFPAY ==
--- NOTE | 2018-06-29 | DI.MRI.S_ITS ---
PROCEDURE: MR FOOT RT WO CON INDICATIONS: PAIN IN RIGHT FOOT ANKLE AND KNEE TECHNIQUE: Noncontrast sagittal T1 spin echo and T2 fast spin echo, long-axis T1 spin echo and T2 fast spin echo with fat saturation, short-axis T1 spin echo and T2 fast spin echo through the forefoot. COMPARISON: [facility], MR, MR FOOT RIGHT WITHOUT CONTRAST, 07/05/2017, 15:05. [facility], MR, MR FOOT RT WO CON, 02/15/2018, 15:14. FINDINGS: Image quality: Limited study due to absence of fat saturation on the sagittal and short axis T2 sequences. Bones and joints: There is persistent bone marrow edema within the distal aspect of the medial cuneiform most prominent along the plantar aspect. No discrete associated fracture line identified. This appears decreased compared to the 07/05/17 study. The findings again may represent a stress reaction or sequela of degenerative change. Elsewhere, there are other small foci of edema within the midfoot including within the navicular and base of the 1st metatarsal compatible with degenerative changes. There is mild degeneration at the 1st metatarsophalangeal joint redemonstrated. There is suggestion of edema in the 4th metatarsal shaft with a represent a stress reaction. No discrete fracture identified. Evaluation is limited by absence of fat saturation on sagittal and short axis images. Soft tissues: The visualized plantar foot muscles demonstrate edema within the interosseous lumbrical muscles which appear similar to prior study. Findings likely represent reactive changes or mild muscle strains. Visualized flexor and extensor tendons appear intact. The distal insertions of the peroneus brevis and longus tendons appear intact. The principal Lisfranc ligament appears intact. No soft tissue ganglion cysts. There is a minimal amount of intermetatarsal bursal fluid at the 1st metatarsal interspace. IMPRESSION: 1. Limited study due to absence of fat saturation on sagittal and short axis images. Repeat sequences may be performed when patient is able to return for additional imaging. 2. Mild edema within the 4th metatarsal may reflect a stress reaction without discrete stress fracture identified. However, evaluation is limited due to absence of sagittal and short axis fluid sensitive sequences. 3. Persistent bone marrow edema within the medial cuneiform likely representing a stress reaction or degenerative changes at the 1st tarsometatarsal joint. 4. Mild degenerative changes in the midfoot as described as well as the 1st metatarsophalangeal joint. 5. Mild edema within the lumbrical muscles likely representing reactive changes. Dictated by: Andrés Ndiaye M.D. on 06/30/2018 at 16:18 Approved by: Andrés Ndiaye M.D. on 06/30/2018 at 16:39
--- NOTE | 2018-06-29 | DI.MRI.S_ITS ---
PROCEDURE: MR KNEE RT WO CON INDICATIONS: PAIN IN RIGHT FOOT ANKLE AND KNEE TECHNIQUE: Noncontrast sagittal PD fast spin echo and T2 fast spin echo with fat saturation, sagittal 3-D FLASH with fat saturation; coronal T1 spin echo and PD fast spin echo with fat saturation, and axial PD fast spin echo with fat saturation through the knee. COMPARISON: [facility], CT, CT FEMUR LEFT WITHOUT CONTRAST, 03/24/2018, 21:24. [facility], MR, MR KNEE RT WO CON, 02/15/2018, 15:40. FINDINGS: Image quality: Diagnostic. Bones and joint: Markedly decreased trabecular markings are suggestive of diffuse osteopenia. There is mild increased signal on the fluid sensitive sequences and intermediate signal on the T1 images involving the lateral femoral condyle that also extends into the region of the medial femoral condyle. No displaced fractures or dislocations are evident. No suspicious osseous lesions are appreciated. Cruciate ligaments: The anterior and posterior cruciate ligaments are intact. The ligaments are small and somewhat attenuated, particularly involving the anterior cruciate ligament. Menisci: There is discoid lateral meniscal morphology with a small tear identified along the free edge of the lateral meniscus along the anterior horn. The medial meniscus is intact and otherwise unremarkable. Medial structures: The medial collateral ligament is intact. The semimembranosus tendon insertion is intact. The imaged portions of the pes anserinus tendons are unremarkable. No significant fluid is contained within the pes anserinus bursa. Lateral structures: The popliteal tendon is intact. The lateral collateral ligament proper (fibular collateral ligament) and the proximal tibiofibular ligaments are intact. The distal aspect of the biceps femoris tendon and the iliotibial band are intact. Anterior structures: The quadriceps and patellar tendons are intact. However, there is moderate thickening identified involving the distal aspect of the patellar tendon with slight increased signal. Calcification and minor tendon is incidentally noted. There is no significant edema in the infrapatellar fat pad. IMPRESSION: 1. Discoid lateral meniscal morphology with a small radial tear along the anterior horn. 2. Increased signal of the distal femur is more pronounced laterally, which may represent a bone contusion or degenerative/reactive marrow change. Red marrow reconversion may also have this appearance. There is no displaced fracture. 3. Moderate distal patellar tendinopathy. Dictated by: Gordo Colorado M.D. on 06/29/2018 at 13:50 Approved by: Gordo Colorado M.D. on 06/29/2018 at 14:04
--- NOTE | 2018-06-29 | DI.MRI.S_ITS ---
PROCEDURE: MR ANKLE RT WO CON INDICATIONS: PAIN IN RIGHT FOOT ANKLE AND KNEE TECHNIQUE: Noncontrast sagittal T1 spin echo and T2 fast spin echo with fat saturation, axial proton density fast spin echo and T2 fast spin echo with fat saturation, coronal T1 spin echo and T2 fast spin echo with fat saturation through the ankle/hindfoot. COMPARISON: [facility], MR, MR FOOT RT WO CON, 02/15/2018, 15:14. FINDINGS: Image quality: Diagnostic. Bones and joints: The trabecular markings of the right hindfoot and midfoot are diffusely decreased, suggesting prominent osteopenia. There is no displaced fracture or dislocation. However, there is focal marrow edema identified involving the calcaneal tuberosity, medial cuneiform, and navicular. There may also be marrow edema involving the 4th metatarsal shaft. The ankle mortise is well-maintained. There are no osteochondral defects evident. No significant joint effusions are evident. There may be a joint body in the posterior aspect of the tibiotalar joint versus os trigonum. Medial structures: The deltoid ligament and the spring ligament appear to be intact. The flexor hallucis longus and flexor digitorum longus tendons also appear to be intact. The posterior tibial nerve through the region of the tarsal tunnel appears to be somewhat enlarged without extrinsic mass effect. However, there is edema about this nerve without focal edema within the nerve itself. Lateral structures: The anterior and posterior distal tibiofibular ligaments are intact. The anterior talofibular ligament appears to be completely torn. The posterior talofibular ligament is intact. The calcaneofibular ligament is intact. There is prominent flattening and mild increased signal noted involving the peroneus brevis tendon with a questionable short segment split tear at the level of the tip of the lateral malleolus. Increased signal and thickening involving the peroneus longus tendon is evident. Anterior structures: The tibialis anterior, extensor hallucis longus, and extensor digitorum longus tendons appear intact. Posterior and plantar structures: Achilles tendon is intact. Medial and lateral bands of the plantar fascia are of normal thickness. Other: There is subcutaneous edema about the ankle. Additionally, there is edema involving the intrinsic muscles of the midfoot and edema involving the flexor hallucis longus muscle. IMPRESSION: 1. Marrow edema involving the calcaneus, navicular, and medial cuneiform may be degenerative. However, this appearance is most suggestive of stress fracture/stress reaction and best appreciated involving the calcaneus. 2. 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 3. Short segment longitudinal split tear of the peroneus brevis tendon with corresponding tendinopathy. 4. Mild peroneus longus tendinopathy. 5. Mild edema about the ankle. 6. Mild prominence of the posterior tibial nerve is nonspecific. Please correlate clinically to exclude tarsal tunnel syndrome. Dictated by: Gordo Colorado M.D. on 06/29/2018 at 14:14 Approved by: Gordo Colorado M.D. on 06/29/2018 at 14:21
--- NOTE | 2018-06-29 | DI.MRI.S_ITS ---
PROCEDURE: MRFOOT LT WO CON INDICATIONS: PAIN IN RIGHT FOOT ANKLE AND KNEE TECHNIQUE: Noncontrast sagittal T1 spin echo and T2 fast spin echo with fat saturation, long-axis T1 spin echo and T2 fast spin echo with fat saturation, short-axis T1 spin echo and T2 fast spin echo with fat saturation through the forefoot. COMPARISON: [facility], MR, MR ANKLE LT WO CON, 06/29/2018, 14:23. [facility], MR, MR FOOT LT WO CON, 02/15/2018, 14:47. FINDINGS: Image quality: Excellent. Bones and joints: Ill-defined curvilinear low T1 and high T2 signal intensity throughout the mid and proximal aspect of the 1st she now form is not significantly changed, allowing for differences in technique. There is increased, moderate ill-defined T2 signal elevation within the medial aspect of the navicular. There is new moderate ill-defined T2 signal elevation and curvilinear low T1 signal intensity within the anterior talus. The sesamoid bones appear in expected positions, without internal edema. No metatarsophalangeal joint degeneration. No intraosseous lesions. Soft tissues: The visualized plantar foot muscles demonstrate normal signal and bulk. Visualized flexor and extensor tendons appear intact, without tenosynovitis. The distal insertions of the peroneus brevis and longus tendons appear intact. The principal Lisfranc ligament appears intact. No soft tissue ganglion cysts or bursal fluid collections. Sagittal images demonstrate no evidence for plantar plate tears. There is moderate T2 signal elevation within the dorsal subcutaneous fat. IMPRESSION: 1. No change in stress fracture within the 1st half form. 2. New contusion within the medial navicular. 3. New mildly displaced fracture of the anterior process of the talus, with surrounding contusion. Dictated by: Fay Grady M.D. on 06/29/2018 at 15:32 Approved by: Fay Grady M.D. on 06/29/2018 at 15:37
--- NOTE | 2018-06-29 | DI.MRI.S_ITS ---
PROCEDURE: MR ANKLE LT WO CON INDICATIONS: PAIN IN RIGHT FOOT ANKLE AND KNEE TECHNIQUE: Noncontrast sagittal T1 spin echo and T2 fast spin echo with fat saturation, axial proton density fast spin echo and T2 fast spin echo with fat saturation, coronal T1 spin echo and T2 fast spin echo with fat saturation through the ankle/hindfoot. COMPARISON: [facility], MR, MR FOOT LT WO CON, 02/15/2018, 14:47. FINDINGS: Image quality: Excellent. Bones and joints: There is new curvilinear low T1 signal intensity within the anterior process of the talus. Moderate ill-defined T2 signal intensity within the anterior process of the talus. Moderate ill-defined T2 signal elevation and curvilinear low T1 signal intensity within the 1st f1st form is not significantly changed. New moderate ill-defined T2 signal elevation within the medial navicular. No hindfoot t coalitions. No osteochondral injuries of the talar dome. No pathologic joint effusions. Medial structures: The posterior tibialis, flexor digitorum longus, and flexor hallucis longus tendons are intact, and demonstrate small amounts of surrounding fluid. The posterior tibial neurovascular bundle appears normal within the tarsal tunnel, without extrinsic mass effect. The deep layer (anterior and posterior tibiotalar ligaments) and superficial layer (tibionavicular, tibiospring, and tibiocalcaneal ligaments) of the deltoid ligament appear normal. The spring ligament components (superomedial calcaneonavicular, medioplantar oblique calcaneonavicular, and inferoplantar longitudinal ligaments) are intact. Lateral structures: The anterior talofibular, calcaneofibular, and posterior talofibular ligaments appear intact. More superiorly, the anterior and posterior tibiofibular ligaments appear intact, as is the intermalleolar ligament. The tibiofibular syndesmosis is normal in width at 2 mm or less. The peroneus longus and brevis tendons demonstrate normal location and morphology. Adjacent bony peroneal tubercle and retrotrochlear prominence are normal in size. The sinus tarsi demonstrates normal fatty signal, without edema, fibrosis, or cyst formation. Visualized sinus tarsi components (cervical ligament, interosseous talocalcaneal ligament, roots of the inferior extensor retinaculum) appear normal. The calcaneonavicular and calcaneocuboid components of the bifurcate ligament appear intact. The dorsal calcaneocuboid ligament appears intact. Anterior structures: Moderate dorsal subcutaneous T2 signal elevation. The tibialis anterior, extensor hallucis longus, and extensor digitorum longus tendons appear intact. The dorsal talonavicular ligament appears intact. Posterior and plantar structures: Achilles tendon is intact. Medial and lateral bands of the plantar fascia are of normal thickness. No abductor digiti quinti muscle atrophy to suggest Moreno neuropathy. IMPRESSION: 1. New minimally displaced fracture of the anterior process of the talus, with surrounding contusion. 2. New contusion within the medial navicular. 3. No change in nondisplaced fracture/contusion of the 1st cuneiform. 4. Medial flexor tenosynovitis. Dictated by: Fay Grady M.D. on 06/29/2018 at 15:37 Approved by: Fay Grady M.D. on 06/29/2018 at 15:40
== END ==
PROVIDERS: PCP Orthopaedic Surgery Foot and Ankle Surgery; Visit Provider Orthopaedic Surgery Foot and Ankle Surgery
DX: S83.281A Other tear of lateral meniscus, current injury, right knee, initial encounter (principal); S93.491A Sprain of other ligament of right ankle, initial encounter; S92.192A Other fracture of left talus, initial encounter for closed fracture; R60.0 Localized edema; M65.872 Other synovitis and tenosynovitis, left ankle and foot; M19.071 Primary osteoarthritis, right ankle and foot; M25.571 Pain in right ankle and joints of right foot; M25.561 Pain in right knee; M79.671 Pain in right foot
CPT/HCPCS: 73718; 73721

== ENCOUNTER → 2019-01-05 19:01 | Outpatient (CLI) | payer MEDICARE, OTHER, SELFPAY ==
--- NOTE | 2019-01-05 | DI.MRI.S_ITS ---
PROCEDURE: MR HIP RT WO CON INDICATIONS: RIGHT HIP PAIN TECHNIQUE: Noncontrast coronal T1 spin echo and STIR through the bony pelvis. Coronal and axial T2 fast spin echo with fat saturation, sagittal T1 spin echo, and oblique axial T2 fast spin echo with fat saturation through the hip. COMPARISON: None. FINDINGS: Image quality: Excellent. Bones and joints: Symmetric appearing mild bilateral hip joint osteoarthritic changes are seen with joint space narrowing and subchondral sclerosis. No fracture or dislocation. No gross marrow edema. No avascular necrosis of the femoral heads. The visualized lower lumbar spine appears normally aligned. Tendons and ligaments: There is edema involving right gluteus medius and minimus muscles near musculotendinous junction suggestive of muscle strain/partial thickness tear. There is also strain/partial thickness tear involving the posterior lateral portion of right pectineus muscle. The nearby proximal iliotibial band also appears intact. The iliopsoas tendon appears intact, without adjacent bursal fluid collections or evidence for impingement syndrome. The origin of the hamstring tendon is intact at the ischial tuberosity, as well as the associated sacrotuberous ligament. The straight and reflected heads of the rectus femoris muscle origin appear intact, as well as the conjoint tendon. T rest of visualized he ligamentum teres appears intact where visualized. Labrum and cartilage: NE absence of intra-articular contrast, there is suggestion of focal superior anterior right hip labral tear. Thinning of articulating cartilages of the femoral head is seen. The alpha angle of the femur is within normal limits at less than 55 degrees. Soft tissues: Visualized muscles demonstrate normal bulk and internal signal. Quadratus femoris muscle demonstrates no internal edema to suggest ischiofemoral impingement. The proximal sciatic neurovascular bundle appears normal adjacent to the hamstring tendons. No free pelvic fluid. Bladder wall thickness is normal. Genitourinary structures and bowel loops appear normal where visualized. IMPRESSION: 1. Symmetric appearing mild to moderate bilateral hip joint osteoarthritis. No fracture or dislocation. No evidence of avascular necrosis of femoral heads. 2. Muscle strain/intrasubstance partial thickness involving right gluteus medius and minimus muscles near musculotendinous junction. Strain/low-grade intrasubstance partial thickness tear involving the posterior lateral portion of right pectineus muscle. 3. Suggestion of focal superior anterior right hip labral tear in the absence of intra-articular contrast. Dictated by: Julio Patterson M.D. on 01/08/2019 at 9:26 Approved by: Julio Patterson M.D. on 01/08/2019 at 10:06
--- NOTE | 2019-01-05 19:05 | DI.MRI.S_ITS ---
PROCEDURE: MR KNEE RT WO CON INDICATIONS: AGE RELATED TECHNIQUE: Noncontrast sagittal PD fast spin echo and T2 fast spin echo with fat saturation, sagittal 3-D FLASH with fat saturation; coronal T1 spin echo and PD fast spin echo with fat saturation, and axial PD fast spin echo with fat saturation through the knee. COMPARISON: [facility], MR, MR KNEE RT WO CON, 06/29/2018, 12:37. FINDINGS: Image quality: Suboptimal secondary to using a body coil instead of knee coil due to patient condition. Menisci: There is no focal medial meniscal tear. Discoid lateral meniscus is seen with no evidence of focal lateral meniscal tear. The meniscal root ligaments appear intact. Cruciate ligaments: The anterior and posterior cruciate ligaments appear intact. Medial structures: The medial collateral ligament appears intact. The posterior oblique ligament, semimembranosus tendon insertions, oblique popliteal ligament, and meniscocapsular junction appear intact. Visualized portions of the pes anserinus tendons appear normal. No abnormal bursal fluid. Lateral structures: The lateral collateral ligament, long and short heads of the biceps femoris tendon appear intact. The popliteus tendon appears normal; the popliteofibular ligament appears intact. The posterosuperior and anteroinferior popliteomeniscal fascicles appear intact. The arcuate and fabellofibular ligaments appear intact, on either side of the lateral inferior geniculate artery. Iliotibial band appears normal. Anterior structures: The quadriceps tendon appears intact. Tendinosis involving the distal patellar tendon near its anterior tibial insertion is seen. No full-thickness patellar tendon rupture. Patellar alignment is normal. No femoral trochlear dysplasia or ventral trochlear prominence. No edema in the infrapatellar fat pad. Bones and cartilage: No bone marrow contusions or fractures. Mild tricompartmental osteoarthritis and low-grade chondromalacia is seen. Joint space: There is physiologic knee joint fluid. No Ramos's cyst. Normal appearing synovial plicae are incidentally noted. IMPRESSION: 1. Slightly suboptimal imaging secondary to use of body coil due to patient positioning. 2. Discoid lateral meniscus. No evidence of focal medial or lateral meniscal tear. 3. Cruciate ligaments are intact. 4. Mild tricompartmental osteoarthritis and low-grade chondromalacia. Trace amount of joint fluid. 4. Distal patellar tendinosis near its anterior tibial insertion. Dictated by: Julio Patterson M.D. on 01/08/2019 at 10:06 Approved by: Julio Patterson M.D. on 01/08/2019 at 10:58
== END ==
PROVIDERS: PCP Orthopaedic Surgery Foot and Ankle Surgery; Visit Provider Orthopaedic Surgery Foot and Ankle Surgery
DX: M25.551 Pain in right hip (principal); S76.312A Strain of muscle, fascia and tendon of the posterior muscle group at thigh level, left thigh, initial encounter; M16.0 Bilateral primary osteoarthritis of hip; M17.11 Unilateral primary osteoarthritis, right knee; M94.261 Chondromalacia, right knee
CPT/HCPCS: 73721

== ENCOUNTER → 2019-01-08 17:35 | Outpatient (CLI) | payer MEDICARE, OTHER, SELFPAY ==
--- NOTE | 2019-01-08 | DI.MRI.S_ITS ---
PROCEDURE: MR ANKLE LT WO CON INDICATIONS: AGE RELATED OSTEOPORORIS TECHNIQUE: Noncontrast sagittal T1 spin echo and T2 fast spin echo with fat saturation, axial proton density fast spin echo and T2 fast spin echo with fat saturation, coronal T1 spin echo and T2 fast spin echo with fat saturation through the ankle/hindfoot. COMPARISON: [facility], MR, MR ANKLE LT WO CON, 06/29/2018, 14:23. FINDINGS: Image quality: Excellent. Bones and joints: There is marrow edema involving the distal portion of talus adjacent to talonavicular joint. Significant marrow edema involving medial cuneiform proximal portion is also seen. There are ill-defined and linear hypointense signal is seen within anterior talus and proximal media cuneiform consistent with stress fractures in the above-mentioned bones. Mild stress reaction is noted in the weight-bearing portion of calcaneus with no discrete fracture line seen. Mild marrow edema involving the proximal portion of navicular bone adjacent to talonavicular joint with internal linear hypointense signal is seen concerning for subtle stress fracture. No hindfoot coalitions. No osteochondral injuries of the talar dome. No pathologic joint effusions. Medial structures: The posterior tibialis, flexor digitorum longus, and flexor hallucis longus tendons are intact. The posterior tibial neurovascular bundle appears normal within the tarsal tunnel, without extrinsic mass effect. The deep layer (anterior and posterior tibiotalar ligaments) and superficial layer (tibionavicular, tibiospring, and tibiocalcaneal ligaments) of the deltoid ligament appear normal. The spring ligament components (superomedial calcaneonavicular, medioplantar oblique calcaneonavicular, and inferoplantar longitudinal ligaments) are intact. Lateral structures: The anterior talofibular, calcaneofibular, and posterior talofibular ligaments appear intact. More superiorly, the anterior and posterior tibiofibular ligaments appear intact, as is the intermalleolar ligament. The tibiofibular syndesmosis is normal in width at 2 mm or less. The peroneus longus and brevis tendons demonstrate normal location and morphology. Adjacent bony peroneal tubercle and retrotrochlear prominence are normal in size. The sinus tarsi demonstrates normal fatty signal, without edema, fibrosis, or cyst formation. Visualized sinus tarsi components (cervical ligament, interosseous talocalcaneal ligament, roots of the inferior extensor retinaculum) appear normal. The calcaneonavicular and calcaneocuboid components of the bifurcate ligament appear intact. The dorsal calcaneocuboid ligament appears intact. Anterior structures: The tibialis anterior, extensor hallucis longus, and extensor digitorum longus tendons appear intact. The dorsal talonavicular ligament appears intact. Posterior and plantar structures: Achilles tendon is intact. Medial and lateral bands of the plantar fascia are of normal thickness. No abductor digiti quinti muscle atrophy to suggest Moreno neuropathy. IMPRESSION: #1. Finding is concerning for nondisplaced stress fracture involving anterior portion of talar and proximal medial portion of navicular bone adjacent to talonavicular joint. Finding is also concerning for nondisplaced stress fracture involving proximal portion of the medial cuneiform. #2. Ankle tendons and ligaments are grossly intact. #3. Likely stress related reaction involving the plantar aspect of posterior calcaneus weight-bearing portion. Dictated by: Julio Patterson M.D. on 01/09/2019 at 9:51 Approved by: Julio Patterson M.D. on 01/09/2019 at 10:08
--- NOTE | 2019-01-08 | DI.MRI.S_ITS ---
PROCEDURE: MR ANKLE RT WO CON INDICATIONS: AGE RELATED OSTEOPORORIS TECHNIQUE: Noncontrast sagittal T1 spin echo and T2 fast spin echo with fat saturation, axial proton density fast spin echo and T2 fast spin echo with fat saturation, coronal T1 spin echo and T2 fast spin echo with fat saturation through the ankle/hindfoot. COMPARISON: [facility], MR, MR ANKLE LT WO CON, 01/08/2019, 18:23. FINDINGS: Image quality: Excellent. Bones and joints: Mild marrow edema involving the medial cuneiform is seen. No discrete fracture line is noted. Finding likely represent mild stress reaction. No other area of abnormal marrow signal. No fracture or dislocation. No hindfoot coalitions. No osteochondral injuries of the talar dome. No pathologic joint effusions. Medial structures: The posterior tibialis, flexor digitorum longus, and flexor hallucis longus tendons are intact. The posterior tibial neurovascular bundle appears normal within the tarsal tunnel, without extrinsic mass effect. The deep layer (anterior and posterior tibiotalar ligaments) and superficial layer (tibionavicular, tibiospring, and tibiocalcaneal ligaments) of the deltoid ligament appear normal. The spring ligament components (superomedial calcaneonavicular, medioplantar oblique calcaneonavicular, and inferoplantar longitudinal ligaments) are intact. Lateral structures: The anterior talofibular, calcaneofibular, and posterior talofibular ligaments appear intact. More superiorly, the anterior and posterior tibiofibular ligaments appear intact, as is the intermalleolar ligament. The tibiofibular syndesmosis is normal in width at 2 mm or less. The peroneus longus and brevis tendons demonstrate normal location and morphology. Adjacent bony peroneal tubercle and retrotrochlear prominence are normal in size. The sinus tarsi demonstrates normal fatty signal, without edema, fibrosis, or cyst formation. Visualized sinus tarsi components (cervical ligament, interosseous talocalcaneal ligament, roots of the inferior extensor retinaculum) appear normal. The calcaneonavicular and calcaneocuboid components of the bifurcate ligament appear intact. The dorsal calcaneocuboid ligament appears intact. Anterior structures: The tibialis anterior, extensor hallucis longus, and extensor digitorum longus tendons appear intact. The dorsal talonavicular ligament appears intact. Posterior and plantar structures: Achilles tendon is intact. Medial and lateral bands of the plantar fascia are of normal thickness. No abductor digiti quinti muscle atrophy to suggest Moreno neuropathy. IMPRESSION: #1. Possible stress reaction versus early stress fracture involving the medial cuneiform. No other area of abnormal marrow signal. #2. Ankle tendons and ligaments are grossly intact. Dictated by: Julio Patterson M.D. on 01/09/2019 at 10:22 Approved by: Julio Patterson M.D. on 01/09/2019 at 10:30
--- NOTE | 2019-01-08 | DI.MRI.S_ITS ---
PROCEDURE: MR LOWER LEG RT WO CON INDICATIONS: AGE RELATED OSTEOPORORIS TECHNIQUE: Noncontrast coronal and sagittal T1 spin echo and STIR; axial T1 spin echo and T2 fast spin echo with fat saturation through the right lower leg. COMPARISON: None. FINDINGS: Image quality: Excellent. Bones: There is anterior cortical thickening and very mild periosteal reaction along mid to distal tibial shaft suggestive of stress reaction. No definite fracture line is identified. No significant marrow edema. No cortical disruption. Soft tissues: Mild soft tissue swelling anterior to mid to distal anterior tibial shaft is seen. No discrete soft tissue mass or fluid collection. The scanned muscles demonstrate normal overall bulk and internal signal. Subcutaneous tissues appear normal as well. No soft tissue masses are present. IMPRESSION: Findings suggestive of low to moderate grade stress reaction involving anterior cortex of mid to distal tibial shaft. No fracture line is seen. No other area of abnormal marrow signal. Dictated by: Julio Patterson M.D. on 01/09/2019 at 10:30 Approved by: Julio Patterson M.D. on 01/09/2019 at 10:39
== END ==
PROVIDERS: PCP Family Medicine; Visit Provider Orthopaedic Surgery Foot and Ankle Surgery
DX: M80.072 Age-related osteoporosis with current pathological fracture, left ankle and foot (principal); M79.661 Pain in right lower leg
CPT/HCPCS: 73718; 73721

== ENCOUNTER 2019-01-19 14:20 | Emergency (ER) | payer MEDICARE, OTHER, SELFPAY ==
[2019-01-19 14:28] VITALS: BP 133/74; PULSE 88; RESP 16; TEMP 36.2; O2SAT 99
[2019-01-19] MEDS: ONDANSETRON 4 MG/2 ML INJ IV (14:37)
--- NOTE | 2019-01-19 15:27 | DI.RAD.S_ITS ---
PROCEDURE: XR FOOT LT MIN 3V INDICATIONS: pain, hx fractures TECHNIQUE: 3 views of the foot were acquired. COMPARISON: None. FINDINGS: Marked diffuse osteopenia. No obvious fractures. IMPRESSION: Marked diffuse osteopenia. No obvious acute fractures. Dictated by: Cristian Morgan M.D. on 01/19/2019 at 21:53 Approved by: Cristian Morgan M.D. on 01/19/2019 at 21:54
--- NOTE | 2019-01-19 15:27 | DI.RAD.S_ITS ---
PROCEDURE: XR FEMUR RT 1V INDICATIONS: pain, hx fractures TECHNIQUE: AP views of the femur were acquired. COMPARISON: None. FINDINGS: On the single AP projection, there no acute fractures or dislocations noted involving the right femur. Diffuse osteopenia. IMPRESSION: AP view demonstrates no femoral fractures or dislocations. Dictated by: Cristian Morgan M.D. on 01/19/2019 at 21:52 Approved by: Cristian Morgan M.D. on 01/19/2019 at 21:53
--- NOTE | 2019-01-19 15:27 | DI.RAD.S_ITS ---
PROCEDURE: XR KNEE RT 1TO2V INDICATIONS: pain, hx fractures TECHNIQUE: 2 views of the knee were acquired. COMPARISON: [facility], , XR KNEE RT 3V, 03/22/2018, 3:05. FINDINGS: AP and lateral views demonstrate no fractures or dislocations are any joint fluid. IMPRESSION: No acute bony abnormality of the right knee. Dictated by: Cristian Morgan M.D. on 01/19/2019 at 20:52 Approved by: Cristian Morgan M.D. on 01/19/2019 at 20:53
--- NOTE | 2019-01-19 15:27 | DI.RAD.S_ITS ---
PROCEDURE: XR TIBIA FUBULA RT 2V INDICATIONS: pain, hx fractures TECHNIQUE: 2 views of the tibia and fibula were acquired. COMPARISON: None. FINDINGS: Diffuse osteopenia. No acute fracture or dislocation seen. IMPRESSION: Diffuse osteopenia. No acute bony abnormality of the right tibia and fibula. Dictated by: Cristian Morgan M.D. on 01/19/2019 at 20:53 Approved by: Cristian Morgan M.D. on 01/19/2019 at 20:54
[2019-01-19] MEDS: MORPHINE 4 MG/ML INJ IV ×2 (15:38→16:43)
[2019-01-19 16:40] VITALS: BP 139/118; PULSE 88; RESP 18; O2SAT 99
[2019-01-19] MEDS: LORazepam 2 MG/ML SYRINGE 1 MG IV (17:17)
--- NOTE | 2019-01-19 17:17 | CM.SWNOTE ---
ED MANAGER R D visit per provider request Presenting Problem: Lower Extremity Pain PCP: Dr. Constanza Rice Payor: Medicare MANAGER R D met with pt and her caregiver, Lakeisha, to offer resources for in-home care support. Pt states that she has had Home Health in the home before, however she felt that they won't be helpful at this time. MANAGER R D discussed Medicaid and the [employer] program as potential resources for the future. Pt states that she is already planning to apply for Medicaid. MANAGER R D provided a handout on the process to apply online for Medicaid/[employer]. No further needs indicated at this time. Pt has had multiple appointments this month for the same issue.
[2019-01-19 17:30] VITALS: BP 119/89; PULSE 96; O2SAT 99
--- NOTE | 2019-01-19 17:32 | PC.NURSE ---
pt requesting multiple narcotics, muscle relaxers, more Ketamine. refused Fentanyl iv. Maryann AMES, in multiple times, along with me to listen, offer emotional support and offer medications.
--- NOTE | 2019-01-19 20:54 | PC.NURSE ---
Pt has returned from imaging.
--- NOTE | 2019-01-19 22:20 | ED.LOWEXIN ---
HPI - Extremity Injury (Lower) <Maryann Alexander, WINDER TENDER-BC - Last Filed: 01/19/19 23:35> General Chief Complaint: Extremity Injury, Lower Stated Complaint: Chest Pain Time Seen by Provider: 01/19/19 15:09 Source: patient Mode of arrival: EMS Limitations: no limitations History of Present Illness HPI Narrative: The patient is a 58-year-old female who presents with a chief complaint of leg pain. she states that she has a history of cerebral palsy on her right side, as well as osteoporosis. She denies any falling or trauma. She states she bent her leg too fast and felt a pop. She has not taken anything prior to arrival other than the 100 mg of ketamine given to her by EMS. She denies any numbness or tingling and denies any other injury. she does complain of longstanding stress fractures in her right leg and left foot. She presents requesting an MRI. Related Data Home Medications Medication Instructions Recorded Confirmed fludrocortisone 0.05 mg PO QAM #0 08/25/17 01/19/19 liothyronine [Cytomel] 5 mcg PO DAILY #0 08/25/17 01/19/19 lorazepam 1 - 2 mg PO BEDTIME PRN #0 08/25/17 01/19/19 Algae Brenden 2 cap PO BID 01/19/19 01/19/19 Compounded Med 2 - 4 pump MISCELLANEOUS 1-2XD 01/19/19 01/19/19 Curcumin 1 cap PO DAILY 01/19/19 01/19/19 DHEA 15 mg PO BID 01/19/19 01/19/19 Magnesium Malate 425 mg PO TID 01/19/19 01/19/19 Pregnenolone 30 mg PO DAILY 01/19/19 01/19/19 Probiotic 2 cap PO TID 01/19/19 01/19/19 Strontium Boost 2 cap PO DAILY 01/19/19 01/19/19 Vitamin C 1,400 mg PO BID 01/19/19 01/19/19 aspirin 81 mg PO BID 01/19/19 01/19/19 divalproex [Depakote] 250 mg PO QPM 01/19/19 01/19/19 divalproex [Depakote] 500 mg PO QAM 01/19/19 01/19/19 hydrocortisone 10 mg PO QPM 01/19/19 01/19/19 hydrocortisone 20 mg PO QAM 01/19/19 01/19/19 progesterone 0.25 ml IM DAILY 01/19/19 01/19/19 vitamin D3-vitamin K2 (MK4) 5 drp PO BID 01/19/19 01/19/19 Previous Rx's Medication Instructions Recorded oxycodone 5 mg PO Q4-6H PRN #3 tab 01/19/19 Allergies Allergy/AdvReac Type Severity Reaction Status Date / Time ciprofloxacin [From Cipro] Allergy Unknown Verified 01/19/19 14:39 cyclobenzaprine Allergy Unknown Verified 01/19/19 14:39 hydromorphone [From DILAUDID] Allergy Unknown Verified 01/19/19 14:28 lamotrigine [From LAMICTAL] Allergy Unknown Verified 01/19/19 14:28 levetiracetam [From KEPPRA] Allergy Unknown Verified 01/19/19 14:28 levofloxacin [From Levaquin] Allergy Unknown Verified 01/19/19 14:39 promethazine [From PHENERGAN] Allergy Unknown Verified 01/19/19 14:28 Sulfa (Sulfonamide Allergy Unknown Verified 01/19/19 14:39 Antibiotics) Review of Systems <MAGDIEL Keane - Last Filed: 01/19/19 23:35> Review of Systems GENERAL: Denies chills, fatigue, malaise, fever, sweats. HEENT: Denies sinus pain, ear pain, sore throat, difficulty swallowing, dizziness. RESPIRATORY: Denies dyspnea, cough, wheezing, hemoptysis, sputum. CARDIOVASCULAR: Denies chest pain, palpitations, orthopnea, edema, GASTROINTESTINAL: Denies nausea, vomiting, abdominal pain, diarrhea, constipation, melena. : Denies dysuria, frequency, incontinence, hematuria, urinary retention. MUSCULOSKELETAL: See HPI SKIN: See HPI NEUROLOGIC: Denies weakness, headache, numbness, change in speech, confusion, seizures, incoordination. PSYCHIATRIC: No concerning psychosocial issues. 12 point review of systems is negative except for those stated above PFSH <MAGDIEL Keane - Last Filed: 01/19/19 23:35> Social History Smoking Status: Never smoker Social History Smoking Status: Never smoker Exam <MAGDIEL Keane - Last Filed: 01/19/19 23:35> Narrative Exam Narrative: GENERAL: Thin chronically ill female in no acute distress HEAD: Atraumatic. Normocephalic. No temporal or scalp tenderness. EYES: Pupils equal round and reactive. Extraocular motions intact. No scleral icterus. No injection or drainage. ENT: Nose without bleeding, purulent drainage or septal hematoma. Throat without erythema, tonsillar hypertrophy or exudate. Uvula midline. Airway patent. NECK: Trachea midline. No JVD or lymphadenopathy. Supple, nontender, no meningeal signs. CARDIOVASCULAR: Regular rate and rhythm without murmurs, gallops, or rubs. RESPIRATORY: Clear to auscultation. Breath sounds equal bilaterally. No wheezes, rales, or rhonchi. GASTROINTESTINAL: Abdomen soft, non-tender, nondistended. No hepato-splenomegaly, or palpable masses. No guarding. EXTREMITIES: Lower legs elevated on foam. Positive pedal pulses both side. General pain to palpation right leg. Unable to evaluate range of motion of knee a due to pain. BACK: Nontender without deformity or crepitance. No flank tenderness. NEURO: AOx3. SKIN: No ecchymoses rash or obvious skin problem to right leg. Initial Vital Signs Initial Vital Signs: Vital Signs Temperature 97.1 F L 01/19/19 14:28 Pulse Rate 88 01/19/19 14:28 Respiratory Rate 16 01/19/19 14:28 Blood Pressure 133/74 01/19/19 14:28 Pulse Oximetry 99 01/19/19 14:28 <Eduardo Tobias DO - Last Filed: 01/20/19 01:08> Initial Vital Signs Initial Vital Signs: Vital Signs Temperature 97.1 F L 01/19/19 14:28 Pulse Rate 88 01/19/19 14:28 Respiratory Rate 16 01/19/19 14:28 Blood Pressure 133/74 01/19/19 14:28 Pulse Oximetry 99 01/19/19 14:28 Course <MAGDIEL Keane - Last Filed: 01/19/19 23:35> Orders Ordered: Discontinued Medications Fentanyl (Sublimaze) 50 mcg IV NOW ONE Stop: 01/19/19 16:53 Last Admin: 01/19/19 17:16 Dose: Not Given Fentanyl (Sublimaze) 50 mcg 1 mcg/kg (50 mcg) IV PRN PRN PRN Reason: Pain, Severe (7-10) Lorazepam (Ativan) 1 mg 0.02 mg/kg (1 mg) IV NOW ONE Stop: 01/19/19 17:08 Last Admin: 01/19/19 17:17 Dose: 1 mg Morphine Sulfate (Morphine) 4 mg IV NOW ONE Stop: 01/19/19 15:27 Last Admin: 01/19/19 15:38 Dose: 4 mg Morphine Sulfate (Morphine) 4 mg IV NOW ONE Stop: 01/19/19 16:24 Last Admin: 01/19/19 16:43 Dose: 4 mg Ondansetron HCl (Zofran) 4 mg IV NOW ONE Stop: 01/19/19 14:36 Last Admin: 01/19/19 14:37 Dose: 4 mg Oxycodone/Acetaminophen (Endocet 5/325 Prepack) 1 bottle MISC SEEINSTR ONE Stop: 01/19/19 22:21 Last Admin: 01/19/19 23:22 Dose: 1 bottle Vital Signs - 8 hr 01/19/19 17:30 01/19/19 22:28 Pulse Rate 96 H 109 H Respiratory Rate 16 Blood Pressure [Left Arm] 119/89 137/83 Pulse Oximetry 99 96 <Eduardo Tobias DO - Last Filed: 01/20/19 01:08> Orders Ordered: Discontinued Medications Fentanyl (Sublimaze) 50 mcg IV NOW ONE Stop: 01/19/19 16:53 Last Admin: 01/19/19 17:16 Dose: Not Given Fentanyl (Sublimaze) 50 mcg 1 mcg/kg (50 mcg) IV PRN PRN PRN Reason: Pain, Severe (7-10) Lorazepam (Ativan) 1 mg 0.02 mg/kg (1 mg) IV NOW ONE Stop: 01/19/19 17:08 Last Admin: 01/19/19 17:17 Dose: 1 mg Morphine Sulfate (Morphine) 4 mg IV NOW ONE Stop: 01/19/19 15:27 Last Admin: 01/19/19 15:38 Dose: 4 mg Morphine Sulfate (Morphine) 4 mg IV NOW ONE Stop: 01/19/19 16:24 Last Admin: 01/19/19 16:43 Dose: 4 mg Ondansetron HCl (Zofran) 4 mg IV NOW ONE Stop: 01/19/19 14:36 Last Admin: 01/19/19 14:37 Dose: 4 mg Oxycodone/Acetaminophen (Endocet 5/325 Prepack) 1 bottle MISC SEEINSTR ONE Stop: 01/19/19 22:21 Last Admin: 01/19/19 23:22 Dose: 1 bottle Vital Signs - 8 hr 01/19/19 17:30 01/19/19 22:28 Pulse Rate 96 H 109 H Respiratory Rate 16 Blood Pressure [Left Arm] 119/89 137/83 Pulse Oximetry 99 96 MDM - Extremity Injury (Lower) <MAGDIEL Keane - Last Filed: 01/19/19 23:35> Imaging Data right femur xray : Radiologist's impression: [address] [address] XRay Report Signed Patient: Janet Mera [facility]#: [id number] : 1960Acct:[id number] Age/Sex: 58 / FDate of Service: 01/19/19 Loc: ED Accession Number: [id number] Procedure: XR femur RT 1V Ordering Provider: Maryann Alexander PROCEDURE: XR FEMUR RT 1V INDICATIONS: pain, hx fractures TECHNIQUE: AP views of the femur were acquired. COMPARISON: None. FINDINGS: On the single AP projection, there no acute fractures or dislocations noted involving the right femur. Diffuse osteopenia. IMPRESSION: AP view demonstrates no femoral fractures or dislocations. Dictated by: Cristian Morgan M.D. on 01/19/2019 at 21:52 Approved by: Cristian Morgan M.D. on 01/19/2019 at 21:53 foot xray : Radiologist's impression: BarronnanJanet 58 F 1960 [address] [address] XRay Report Signed Patient: Janet Mera [facility]#: [id number] : 1960Acct:[id number] Age/Sex: 58 / FDate of Service: 01/19/19 Loc: ED Accession Number: [id number] Procedure: XR foot LT min 3V Ordering Provider: Benjamin,Maryann WINDER TENDER-BC PROCEDURE: XR FOOT LT MIN 3V INDICATIONS: pain, hx fractures TECHNIQUE: 3 views of the foot were acquired. COMPARISON: None. FINDINGS: Marked diffuse osteopenia. No obvious fractures. IMPRESSION: Marked diffuse osteopenia. No obvious acute fractures. Dictated by: Cristian Morgan M.D. on 01/19/2019 at 21:53 Approved by: Cristian Morgan M.D. on 01/19/2019 at 21:54 knee xray : Radiologist's impression: [address] [address] XRay Report Signed Patient: Janet Mera [facility]#: [id number] : 1960Acct:[id number] Age/Sex: 58 / FDate of Service: 01/19/19 Loc: ED Accession Number: [id number] Procedure: XR knee RT 1to2V Ordering Provider: Maryann Alexander-JASPREET PROCEDURE: XR KNEE RT 1TO2V INDICATIONS: pain, hx fractures TECHNIQUE: 2 views of the knee were acquired. COMPARISON: [facility], XR KNEE RT 3V, 03/22/2018, 3:05. FINDINGS: AP and lateral views demonstrate no fractures or dislocations are any joint fluid. IMPRESSION: No acute bony abnormality of the right knee. Dictated by: Cristian Morgan M.D. on 01/19/2019 at 20:52 Approved by: Cristian Morgan M.D. on 01/19/2019 at 20:53 right lower leg pain : Radiologist's impression: [address] [address] XRay Report Signed Patient: Janet Mera [facility]#: [id number] : 1960Acct:[id number] Age/Sex: 58 / FDate of Service: 01/19/19 Loc: ED Accession Number: [id number] Procedure: XR tibia fibula RT 2V Ordering Provider: Maryann Alexander-BC PROCEDURE: XR TIBIA FUBULA RT 2V INDICATIONS: pain, hx fractures TECHNIQUE: 2 views of the tibia and fibula were acquired. COMPARISON: None. FINDINGS: Diffuse osteopenia. No acute fracture or dislocation seen. IMPRESSION: Diffuse osteopenia. No acute bony abnormality of the right tibia and fibula. Dictated by: Cristian Morgan M.D. on 01/19/2019 at 20:53 Approved by: Cristian Morgan M.D. on 01/19/2019 at 20:54 [facility] Narrative Medical decision making narrative: The patient is a 58-year-old presents with right leg pain after bending her knee and hearing a crack. She is neurovascularly intact. she has no obvious deformity. The patient requested an MRI immediately, stating that her fractures are not available to be seen on x-rays. I discussed that in the emergency department I could not order an MRI without doing x-rays and without an indication. The patient appeared distressed by this information. She had a long course in the emergency department and due to difficulties obtaining x-rays as the patient kept declining due to lack of pain medication. She was given 2 doses of 4 mg of morphine and was offered multiple doses of fentanyl, which she declined. She did have 1 mg of IV Ativan. The patient appeared distressed when I said I would not give her 2 mg immediately. She also received 100 mg of ketamine by EMS. I was not willing to come by in narcotic pain medication with benzodiazepines in order to get x-rays. The patient repeatedly requested IV baclofen, as well as IV oxycodone and IV Percocet. I discussed that these are not IV pain medications available in the emergency department. She also requested IV ketamine. The patient stated that IV pain medication makes her pain worse, yet was requesting different forms of IV pain medication that do not exist. She was also willing to receive morphine. The patient requested admission to this facility. I discussed at length that I could not admit her if she is not willing to comply with the workup, and also that leg pain is not an indication for hospital admission unless there is a serious complication. The patient stated she could not live by herself at home as she is in too much pain to try to use a bedpan. The social and political studies professor Veronica spent a copious amount of time with her discussing her possible solutions to her long-term home care difficulties. She was given contact information for multiple private caregivers, and later admitted that she has another list at home. I witnessed the patient states she did not want to go to respite facility or nursing home facility due to cost. The patient stated that she would be willing to get imaging, which was obtained and negative. the patient discussed how she was admitted to [facility] last time for the same thing. I discussed that she came in for weakness last time, received cardiac rule out and earlier in the day had been seen multiple times that day. Veronica the social and political studies professor spent copious time with her attempting to the discharge plan, set up resources and give resources. The patient appears resistant to anything but a hospital admission. I discussed that she does not meet admission criteria at this point in time. She requested a transfer to another facility, but I stated that since she has no obvious fractures on her x-ray and has not trialed home pain medication she does not meet admission criteria. 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 All of my conversations with the patient were completed with nursing present, either Dorita or Rosanna. I witnessed the patient declined multiple doses of IV pain medication, it still declined x-rays due to pain. I witnessed the patient declined possible nursing home or respite placement when offered by social work. She was discharged home with some pain medication with an instruction to follow up with her primary care provider. She was given some oral medication at home. She did go home by [facility] as she declined a cab. I spoke with Alise Edmonds and Micheline multiple times throughout this patient's stay in the emergency department given the complex social situation. Discharge Plan Departure Patient Disposition: Home Clinical Impression: Chronic leg pain Qualifiers: Laterality: right Qualified Code(s): M79.604 - Pain in right leg Discharge Date/Time: 01/19/19 23:25 Interventions: ED Discharge Assessment Last Done: 01/19/19 23:25 Instructions: How To Perform RICE (Rest, Ice, Compress, Elevate), DI for Leg Pain Activity Restrictions/Additional Instructions: Your x-rays came back negative for any fracture. Unfortunately there is no medical reason to admit you to the hospital today. I have given you pain medication to take at home. Please follow up with your resources as the social and political studies professor discussed. Please follow-up with a primary care provider soon as possible. Prescriptions: New oxycodone 5 mg tablet 5 mg PO Q4-6H PRN (Reason: pain) Qty: 3 RF: 0 No Action liothyronine [Cytomel] 5 MCG tablet 5 mcg PO DAILY Qty: 0 RF: 0 lorazepam 1 MG tablet 1 - 2 mg PO BEDTIME PRN (Reason: Sleep) Qty: 0 RF: 0 fludrocortisone 0.1 MG tablet 0.05 mg PO QAM Qty: 0 RF: 0 progesterone 100 mg/ml 0.25 ml IM DAILY RF: 0 Algae Brenden capsule 2 cap PO BID RF: 0 divalproex [Depakote] 250 mg Tablet,Delayed Release (Dr/Ec) 250 mg PO QPM RF: 0 divalproex [Depakote] 500 mg Tablet,Delayed Release (Dr/Ec) 500 mg PO QAM RF: 0 aspirin 81 mg Tablet,Delayed Release (Dr/Ec) 81 mg PO BID RF: 0 hydrocortisone 20 mg Tablet 20 mg PO QAM RF: 0 hydrocortisone 10 mg Tablet 10 mg PO QPM RF: 0 Curcumin capsule 1 cap PO DAILY RF: 0 DHEA 15 mg tablet 15 mg PO BID RF: 0 Magnesium Malate 425 mg 425 mg PO TID RF: 0 Pregnenolone 30 mg PO DAILY RF: 0 Probiotic 2 cap PO TID RF: 0 Strontium Boost 2 cap PO DAILY RF: 0 Vitamin C 1,400 mg 1,400 mg PO BID RF: 0 vitamin D3-vitamin K2 (MK4) 4,000 units liquid 5 drp PO BID RF: 0 Compounded Med 2 - 4 pump miscellaneous 1-2XD RF: 0 Referrals: Constanza Rice DO [Primary Care Provider] - <Eduardo Tobias DO - Last Filed: 01/20/19 01:08> Cosign ED Attending Noble Attestation: I was available for consultation during this patient's emergency department encounter
[2019-01-19 22:28] VITALS: BP 137/83; PULSE 109; RESP 16; O2SAT 96
[2019-01-19] MEDS: OXYCODONE/APAP 5/325 PREPACK 1 BOTTLE MISC (23:22)
--- NOTE | 2019-01-19 23:25 | ED_ITS ---
HPI - Extremity Injury (Lower) <Maryann Alexander, COMMUNITY AMBASSADOR-BC - Last Filed: 01/19/19 23:35> General Chief Complaint: Extremity Injury, Lower Stated Complaint: Chest Pain Time Seen by Provider: 01/19/19 15:09 Source: patient Mode of arrival: EMS Limitations: no limitations History of Present Illness HPI Narrative: The patient is a 58-year-old female who presents with a chief complaint of leg pain. she states that she has a history of cerebral palsy on her right side, as well as osteoporosis. She denies any falling or trauma. She states she bent her leg too fast and felt a pop. She has not taken anything prior to arrival other than the 100 mg of ketamine given to her by EMS. She denies any numbness or tingling and denies any other injury. she does complain of longstanding stress fractures in her right leg and left foot. She presents requesting an MRI. Related Data Home Medications Medication Instructions Recorded Confirmed fludrocortisone 0.05 mg PO QAM #0 08/25/17 01/19/19 liothyronine [Cytomel] 5 mcg PO DAILY #0 08/25/17 01/19/19 lorazepam 1 - 2 mg PO BEDTIME PRN #0 08/25/17 01/19/19 Algae Brenden 2 cap PO BID 01/19/19 01/19/19 Compounded Med 2 - 4 pump MISCELLANEOUS 1-2XD 01/19/19 01/19/19 Curcumin 1 cap PO DAILY 01/19/19 01/19/19 DHEA 15 mg PO BID 01/19/19 01/19/19 Magnesium Malate 425 mg PO TID 01/19/19 01/19/19 Pregnenolone 30 mg PO DAILY 01/19/19 01/19/19 Probiotic 2 cap PO TID 01/19/19 01/19/19 Strontium Boost 2 cap PO DAILY 01/19/19 01/19/19 Vitamin C 1,400 mg PO BID 01/19/19 01/19/19 aspirin 81 mg PO BID 01/19/19 01/19/19 divalproex [Depakote] 250 mg PO QPM 01/19/19 01/19/19 divalproex [Depakote] 500 mg PO QAM 01/19/19 01/19/19 hydrocortisone 10 mg PO QPM 01/19/19 01/19/19 hydrocortisone 20 mg PO QAM 01/19/19 01/19/19 progesterone 0.25 ml IM DAILY 01/19/19 01/19/19 vitamin D3-vitamin K2 (MK4) 5 drp PO BID 01/19/19 01/19/19 Previous Rx's Medication Instructions Recorded oxycodone 5 mg PO Q4-6H PRN #3 tab 01/19/19 Allergies Allergy/AdvReac Type Severity Reaction Status Date / Time ciprofloxacin [From Cipro] Allergy Unknown Verified 01/19/19 14:39 cyclobenzaprine Allergy Unknown Verified 01/19/19 14:39 hydromorphone [From DILAUDID] Allergy Unknown Verified 01/19/19 14:28 lamotrigine [From LAMICTAL] Allergy Unknown Verified 01/19/19 14:28 levetiracetam [From KEPPRA] Allergy Unknown Verified 01/19/19 14:28 levofloxacin [From Levaquin] Allergy Unknown Verified 01/19/19 14:39 promethazine [From PHENERGAN] Allergy Unknown Verified 01/19/19 14:28 Sulfa (Sulfonamide Allergy Unknown Verified 01/19/19 14:39 Antibiotics) Review of Systems <MAGDIEL Keane - Last Filed: 01/19/19 23:35> Review of Systems GENERAL: Denies chills, fatigue, malaise, fever, sweats. HEENT: Denies sinus pain, ear pain, sore throat, difficulty swallowing, dizziness. RESPIRATORY: Denies dyspnea, cough, wheezing, hemoptysis, sputum. CARDIOVASCULAR: Denies chest pain, palpitations, orthopnea, edema, GASTROINTESTINAL: Denies nausea, vomiting, abdominal pain, diarrhea, constipation, melena. : Denies dysuria, frequency, incontinence, hematuria, urinary retention. MUSCULOSKELETAL: See HPI SKIN: See HPI NEUROLOGIC: Denies weakness, headache, numbness, change in speech, confusion, seizures, incoordination. PSYCHIATRIC: No concerning psychosocial issues. 12 point review of systems is negative except for those stated above PFSH <MAGDIEL Keane - Last Filed: 01/19/19 23:35> Social History Smoking Status: Never smoker Social History Smoking Status: Never smoker Exam <MAGDIEL Keane - Last Filed: 01/19/19 23:35> Narrative Exam Narrative: GENERAL: Thin chronically ill female in no acute distress HEAD: Atraumatic. Normocephalic. No temporal or scalp tenderness. EYES: Pupils equal round and reactive. Extraocular motions intact. No scleral icterus. No injection or drainage. ENT: Nose without bleeding, purulent drainage or septal hematoma. Throat without erythema, tonsillar hypertrophy or exudate. Uvula midline. Airway patent. NECK: Trachea midline. No JVD or lymphadenopathy. Supple, nontender, no meningeal signs. CARDIOVASCULAR: Regular rate and rhythm without murmurs, gallops, or rubs. RESPIRATORY: Clear to auscultation. Breath sounds equal bilaterally. No wheezes, rales, or rhonchi. GASTROINTESTINAL: Abdomen soft, non-tender, nondistended. No hepato- splenomegaly, or palpable masses. No guarding. EXTREMITIES: Lower legs elevated on foam. Positive pedal pulses both side. General pain to palpation right leg. Unable to evaluate range of motion of knee a due to pain. BACK: Nontender without deformity or crepitance. No flank tenderness. NEURO: AOx3. SKIN: No ecchymoses rash or obvious skin problem to right leg. Initial Vital Signs Initial Vital Signs: Vital Signs Temperature 97.1 F L 01/19/19 14:28 Pulse Rate 88 01/19/19 14:28 Respiratory Rate 16 01/19/19 14:28 Blood Pressure 133/74 01/19/19 14:28 Pulse Oximetry 99 01/19/19 14:28 <Eduardo Tobias DO - Last Filed: 01/20/19 01:08> Initial Vital Signs Initial Vital Signs: Vital Signs Temperature 97.1 F L 01/19/19 14:28 Pulse Rate 88 01/19/19 14:28 Respiratory Rate 16 01/19/19 14:28 Blood Pressure 133/74 01/19/19 14:28 Pulse Oximetry 99 01/19/19 14:28 Course <MAGDIEL Keane - Last Filed: 01/19/19 23:35> Orders Ordered: Discontinued Medications Fentanyl (Sublimaze) 50 mcg IV NOW ONE Stop: 01/19/19 16:53 Last Admin: 01/19/19 17:16 Dose: Not Given Fentanyl (Sublimaze) 50 mcg 1 mcg/kg (50 mcg) IV PRN PRN PRN Reason: Pain, Severe (7-10) Lorazepam (Ativan) 1 mg 0.02 mg/kg (1 mg) IV NOW ONE Stop: 01/19/19 17:08 Last Admin: 01/19/19 17:17 Dose: 1 mg Morphine Sulfate (Morphine) 4 mg IV NOW ONE Stop: 01/19/19 15:27 Last Admin: 01/19/19 15:38 Dose: 4 mg Morphine Sulfate (Morphine) 4 mg IV NOW ONE Stop: 01/19/19 16:24 Last Admin: 01/19/19 16:43 Dose: 4 mg Ondansetron HCl (Zofran) 4 mg IV NOW ONE Stop: 01/19/19 14:36 Last Admin: 01/19/19 14:37 Dose: 4 mg Oxycodone/Acetaminophen (Endocet 5/325 Prepack) 1 bottle MISC SEEINSTR ONE Stop: 01/19/19 22:21 Last Admin: 01/19/19 23:22 Dose: 1 bottle Vital Signs - 8 hr 01/19/19 17:30 01/19/19 22:28 Pulse Rate 96 H 109 H Respiratory Rate 16 Blood Pressure [Left Arm] 119/89 137/83 Pulse Oximetry 99 96 <Eduardo Tobias DO - Last Filed: 01/20/19 01:08> Orders Ordered: Discontinued Medications Fentanyl (Sublimaze) 50 mcg IV NOW ONE Stop: 01/19/19 16:53 Last Admin: 01/19/19 17:16 Dose: Not Given Fentanyl (Sublimaze) 50 mcg 1 mcg/kg (50 mcg) IV PRN PRN PRN Reason: Pain, Severe (7-10) Lorazepam (Ativan) 1 mg 0.02 mg/kg (1 mg) IV NOW ONE Stop: 01/19/19 17:08 Last Admin: 01/19/19 17:17 Dose: 1 mg Morphine Sulfate (Morphine) 4 mg IV NOW ONE Stop: 01/19/19 15:27 Last Admin: 01/19/19 15:38 Dose: 4 mg Morphine Sulfate (Morphine) 4 mg IV NOW ONE Stop: 01/19/19 16:24 Last Admin: 01/19/19 16:43 Dose: 4 mg Ondansetron HCl (Zofran) 4 mg IV NOW ONE Stop: 01/19/19 14:36 Last Admin: 01/19/19 14:37 Dose: 4 mg Oxycodone/Acetaminophen (Endocet 5/325 Prepack) 1 bottle MISC SEEINSTR ONE Stop: 01/19/19 22:21 Last Admin: 01/19/19 23:22 Dose: 1 bottle Vital Signs - 8 hr 01/19/19 17:30 01/19/19 22:28 Pulse Rate 96 H 109 H Respiratory Rate 16 Blood Pressure [Left Arm] 119/89 137/83 Pulse Oximetry 99 96 MDM - Extremity Injury (Lower) <MAGDIEL Keane - Last Filed: 01/19/19 23:35> Imaging Data right femur xray : Radiologist's impression: [address] [address] XRay Report Signed Patient: Janet Mera [facility]#: [id number] : 1960Acct:[id number] Age/Sex: 58 / FDate of Service: 01/19/19 Loc: ED Accession Number: [id number] Procedure: XR femur RT 1V Ordering Provider: Maryann Alexander PROCEDURE: XR FEMUR RT 1V INDICATIONS: pain, hx fractures TECHNIQUE: AP views of the femur were acquired. COMPARISON: None. FINDINGS: On the single AP projection, there no acute fractures or dislocations noted involving the right femur. Diffuse osteopenia. IMPRESSION: AP view demonstrates no femoral fractures or dislocations. Dictated by: Cristian Morgan M.D. on 01/19/2019 at 21:52 Approved by: Cristian Morgan M.D. on 01/19/2019 at 21:53 foot xray : Radiologist's impression: BarronnanJanet 58 F [address] [address] XRay Report Signed Patient: Janet Mera [facility]#: [id number] : 1960Acct:[id number] Age/Sex: 58 / FDate of Service: 01/19/19 Loc: ED Accession Number: [id number] Procedure: XR foot LT min 3V Ordering Provider: Benjamin,Maryann COMMUNITY AMBASSADOR-BC PROCEDURE: XR FOOT LT MIN 3V INDICATIONS: pain, hx fractures TECHNIQUE: 3 views of the foot were acquired. COMPARISON: None. FINDINGS: Marked diffuse osteopenia. No obvious fractures. IMPRESSION: Marked diffuse osteopenia. No obvious acute fractures. Dictated by: Cristian Morgan M.D. on 01/19/2019 at 21:53 Approved by: Cristian Morgan M.D. on 01/19/2019 at 21:54 knee xray : Radiologist's impression: [address] [address] XRay Report Signed Patient: Janet Mera [facility]#: [id number] : 1960Acct:[id number] Age/Sex: 58 / FDate of Service: 01/19/19 Loc: ED Accession Number: [id number] Procedure: XR knee RT 1to2V Ordering Provider: Maryann Alexander-JASPREET PROCEDURE: XR KNEE RT 1TO2V INDICATIONS: pain, hx fractures TECHNIQUE: 2 views of the knee were acquired. COMPARISON: [facility], XR KNEE RT 3V, 03/22/2018, 3:05. FINDINGS: AP and lateral views demonstrate no fractures or dislocations are any joint fluid. IMPRESSION: No acute bony abnormality of the right knee. Dictated by: Cristian Morgan M.D. on 01/19/2019 at 20:52 Approved by: Cristian Morgan M.D. on 01/19/2019 at 20:53 right lower leg pain : Radiologist's impression: [address] [address] XRay Report Signed Patient: Janet Mera [facility]#: [id number] : 1960Acct:[id number] Age/Sex: 58 / FDate of Service: 01/19/19 Loc: ED Accession Number: [id number] Procedure: XR tibia fibula RT 2V Ordering Provider: Maryann Alexander-BC PROCEDURE: XR TIBIA FUBULA RT 2V INDICATIONS: pain, hx fractures TECHNIQUE: 2 views of the tibia and fibula were acquired. COMPARISON: None. FINDINGS: Diffuse osteopenia. No acute fracture or dislocation seen. IMPRESSION: Diffuse osteopenia. No acute bony abnormality of the right tibia and fibula. Dictated by: Cristian Morgan M.D. on 01/19/2019 at 20:53 Approved by: Cristian Morgan M.D. on 01/19/2019 at 20:54 [facility] Narrative Medical decision making narrative: The patient is a 58-year-old presents with right leg pain after bending her knee and hearing a crack. She is neurovascularly intact. she has no obvious deformity. The patient requested an MRI immediately, stating that her fractures are not available to be seen on x- rays. I discussed that in the emergency department I could not order an MRI without doing x-rays and without an indication. The patient appeared distressed by this information. She had a long course in the emergency department and due to difficulties obtaining x-rays as the patient kept declining due to lack of pain medication. She was given 2 doses of 4 mg of morphine and was offered multiple doses of fentanyl, which she declined. She did have 1 mg of IV Ativan. The patient appeared distressed when I said I would not give her 2 mg immediately. She also received 100 mg of ketamine by EMS. I was not willing to come by in narcotic pain medication with benzodiazepines in order to get x-rays. The patient repeatedly requested IV baclofen, as well as IV oxycodone and IV Percocet. I discussed that these are not IV pain medications available in the emergency department. She also requested IV ketamine. The patient stated that IV pain medication makes her pain worse, yet was requesting different forms of IV pain medication that do not exist. She was also willing to receive morphine. The patient requested admission to this facility. I discussed at length that I could not admit her if she is not willing to comply with the workup, and also that leg pain is not an indication for hospital admission unless there is a serious complication. The patient stated she could not live by herself at home as she is in too much pain to try to use a bedpan. The social media sr strategy manager Veronica spent a copious amount of time with her discussing her possible solutions to her long-term home care difficulties. She was given contact information for multiple private caregivers, and later admitted that she has another list at home. I witnessed the patient states she did not want to go to respite facility or prison facility due to cost. The patient stated that she would be willing to get imaging, which was obtained and negative. the patient discussed how she was admitted to [facility] last time for the same thing. I discussed that she came in for weakness last time, received cardiac rule out and earlier in the day had been seen multiple times that day. Veronica the social media sr strategy manager spent copious time with her attempting to the discharge plan, set up resources and give resources. The patient appears resistant to anything but a hospital admission. I discussed that she does not meet admission criteria at this point in time. She requested a transfer to another facility, but I stated that since she has no obvious fractures on her x-ray and has not trialed home pain medication she does not meet admission criteria. We copiously discussed that this is a city editor care issue, and ensured that the patient has several resources to call tomorrow and that she can follow up with her primary care physician. All of my conversations with the patient were completed with nursing present, either Dorita or Rosanna. I witnessed the patient declined multiple doses of IV pain medication, it still declined x-rays due to pain. I witnessed the patient declined possible prison or respite placement when offered by social work. She was discharged home with some pain medication with an instruction to follow up with her primary care provider. She was given some oral medication at home. She did go home by [facility] as she declined a cab. I spoke with Alise Edmonds and Micheline multiple times throughout this patient's stay in the emergency department given the complex social situation. Discharge Plan Departure Patient Disposition: Home Clinical Impression: Chronic leg pain Qualifiers: Laterality: right Qualified Code(s): M79.604 - Pain in right leg Discharge Date/Time: 01/19/19 23:25 Interventions: ED Discharge Assessment Last Done: 01/19/19 23:25 Instructions: How To Perform RICE (Rest, Ice, Compress, Elevate), DI for Leg Pain Activity Restrictions/Additional Instructions: Your x-rays came back negative for any fracture. Unfortunately there is no medical reason to admit you to the hospital today. I have given you pain medication to take at home. Please follow up with your resources as the social media sr strategy manager discussed. Please follow-up with a primary care provider soon as possible. Prescriptions: New oxycodone 5 mg tablet 5 mg PO Q4-6H PRN (Reason: pain) Qty: 3 RF: 0 No Action liothyronine [Cytomel] 5 MCG tablet 5 mcg PO DAILY Qty: 0 RF: 0 lorazepam 1 MG tablet 1 - 2 mg PO BEDTIME PRN (Reason: Sleep) Qty: 0 RF: 0 fludrocortisone 0.1 MG tablet 0.05 mg PO QAM Qty: 0 RF: 0 progesterone 100 mg/ml 0.25 ml IM DAILY RF: 0 Algae Brenden capsule 2 cap PO BID RF: 0 divalproex [Depakote] 250 mg Tablet,Delayed Release (Dr/Ec) 250 mg PO QPM RF: 0 divalproex [Depakote] 500 mg Tablet,Delayed Release (Dr/Ec) 500 mg PO QAM RF: 0 aspirin 81 mg Tablet,Delayed Release (Dr/Ec) 81 mg PO BID RF: 0 hydrocortisone 20 mg Tablet 20 mg PO QAM RF: 0 hydrocortisone 10 mg Tablet 10 mg PO QPM RF: 0 Curcumin capsule 1 cap PO DAILY RF: 0 DHEA 15 mg tablet 15 mg PO BID RF: 0 Magnesium Malate 425 mg 425 mg PO TID RF: 0 Pregnenolone 30 mg PO DAILY RF: 0 Probiotic 2 cap PO TID RF: 0 Strontium Boost 2 cap PO DAILY RF: 0 Vitamin C 1,400 mg 1,400 mg PO BID RF: 0 vitamin D3-vitamin K2 (MK4) 4,000 units liquid 5 drp PO BID RF: 0 Compounded Med 2 - 4 pump miscellaneous 1-2XD RF: 0 Referrals: Constanza Rice DO [Primary Care Provider] - <Eduardo Tobias DO - Last Filed: 01/20/19 01:08> Cosign ED Attending Noble Attestation: I was available for consultation during this patient's emergency department encounter
== END 2019-01-19 23:25 | disposition home or self-care (01) ==
PROVIDERS: Emergency Provider Nurse Practitioner Family; PCP Family Medicine
DX: M79.604 Pain in right leg (principal); M79.672 Pain in left foot
CPT/HCPCS: 73551; 73560; 73590; 73630; 96374; 96375; 96376; 99284; J2060; J2270; J2405